=== PATIENT | male | born 1955 | race Caucasian/White ===

== ENCOUNTER 2023-05-08 09:32 | Inpatient (IN) | payer OTHER, SELFPAY ==
[2023-05-08] VITALS (33 sets, daily range): BP systolic 76–154; BP diastolic 44–99; PULSE 65–72; BMI 27.8; BMI 27.0
[2023-05-08 05:41] LABS: % Basophils 0.4 % (0-2); % Eosinophils 1.6 % (0-6); % Immature Granulocytes 0.4 % (0-0.5); % Lymphocytes 23.8 % (20.5-51.1); % Monocytes 9.9 % (1.7-9.3); % Neutrophils 63.9 % (42.2-75.2); Absolute Eosinophils 0.2 10^3/uL (0-0.7); Absolute Lymphocytes 2.5 10^3/uL (1.2-3.4); Absolute Monocytes 1.1 10^3/uL (0.1-0.6); Absolute Neutrophils 6.8 10^3/uL (1.4-6.5); Hematocrit 45.2 % (39.0-52.0); Hemoglobin 15.6 g/dL (13.0-18.0); Mean Corp Hgb Conc. 34.5 g/dL (33.0-37.0); Mean Corpuscular Hgb 30.8 pg (27.0-31.0); Mean Corpuscular Volume 89.3 fL (80.0-94.0); Mean Platelet Volume 9.5 fL (7.4-10.4); Nucleated Red Blood Cells % 0 % (-); Platelet Count 268 10^3/uL (130-400); Red Blood Cell Count 5.06 10^6/uL (4.70-6.10); Red Cell Dist. Width 13.1 % (11.5-14.5); White Blood Cell Count 10.6 10^3/uL (4.8-10.8)
--- NOTE | 2023-05-08 05:46 | ED.GENMED ---
History of Present Illness
General
Chief Complaint: Heart Rate Problem
Source: patient
Exam Limitations: none
Time Seen by Provider: 05/08/23 05:39
Nursing documentation reviewed up to this point in time: agreed with
Travel History
Have you had any contact with someone who has COVID-19?: No
Do you have any symptoms of coronavirus? Fever > 100 degrees, chills, cough, shortness of breath, sore throat, loss of taste or smell, muscle aches, or headache?: No
History of Present Illness
History of Present Illness:
Patient status post recent pacemaker placement secondary to dizziness associated with bradycardia, presents to ED secondary to sudden onset of chest palpitations which woke the patient up from sleep this morning. Denies shortness of breath. Denies
chest pain. Denies diaphoresis. Denies nausea or vomiting. Patient is also complaining of dizziness, which unfortunately has been ongoing for some time. Denies recent change in diet. Denies recent illness. Denies recent travel. Patient does
not take any blood thinning medications. Patient presents with rapid atrial fibrillation, which patient has not had previously.
Past History
Past History
ED Past Medical History: HTN, Hypercholesterolemia and Other (BPH); Negative Arrthythmia, CAD, IDDM or NIDDM
ED Past Surgical History: Tonsilectomy and Other (Hernia repair)
Social History
Tobacco: Non-smoker
Alcohol: None
Drug: None
Personal:
Living: with family
Employment: Employed
Family History
Family History: Hypertension and Other (Two brothers with cardiac problems on with 2 SC's in 60's, other brother has pacemaker)
Review of Systems
Review of Systems
Allergies reviewed?: Yes
All Other Systems: ROS reviewed and negative except as documented in HPI and ROS
Constitutional: Reports no symptoms
EENT: Reports no symptoms
Respiratory: Reports no symptoms; Denies trouble breathing
Cardiac: Reports palpitations; Denies chest pain, diaphoresis or syncope
ABD/GI: Reports no symptoms; Denies nausea or vomiting
: Reports no symptoms
Musculoskeletal: Reports no symptoms
Skin: Reports no symptoms
Neurological: Reports no symptoms
Phy Exam
Physical Exam
Physical Exam:
Physical Exam
General: mild distress, not acutely ill. afebrile
Head: nc/at. eomi
Neck: supple. no meningeal signs.
Heart: irregularly irregular, tachycardic, no murmur. equal radial pulses.
Lungs: no acute respiratory distress. clear bilaterally
Abdomen: normal bowel sounds. not tender.
Neuro: alert and oriented. no focal neurological deficits
Skin: no rash
Psychiatric: well kept. interactive and cooperative
Extremities: no edema. no calf tenderness.
Scores
[id number] Score for Afib Stroke Risk
Age in Years (65=0, 65-74=1, >/=75=2): 65-74
Sex (Female=+1): Male
Congestive Heart Failure History (Yes=+1): No
Hypertension History (Yes=+1): Yes
Stroke/TIA/Thromboembolism History (Yes=+2): No
Vascular Disease History (Yes=+1): No
Diabetes Mellitus (Yes=+1): No
Score: 2
Anticoagulation Recommendations: Recommend anticoagulation (as validated in nonvalvular fib)
Course
Orders/Labs/Results
Orders:
Orders
05/08/23 05:32
Electrocardiogram (*1) Urgent
Reason for Study: Palpitations
Cardiac Monitoring- Treatment ONCE
05/08/23 05:33
EKG- Treatment ONCE
05/08/23 05:35
CMP [Comprehensive Metabolic Panel] Urgent
Complete Blood Count/With Diff Urgent
Magnesium Urgent
Comment: ADD ON
TSH Reflex To Free T4 Urgent
Comment: ADD ON
Troponin I Urgent
05/08/23 05:45
Add On- LAB Urgent
Tests Added?: magnesium, TSH to reflex free T4
05/08/23 05:47
Diltiazem 125 mg/125 ml Nss [Cardizem] 125 mg in 125 ml .ROUTE .STK-MED
Diltiazem HCl [Cardizem] 25 mg .ROUTE .STK-MED ONE
05/08/23 05:48
Diltiazem HCl [Cardizem] 20 mg IV NOW STA
05/08/23 Breakfast
Regular
At Your Request: Full Participation
Does patient need a safe tray?: No
Reason for opting out of Ssrs Report Developer order writing: Provider Decision
Diltiazem 125 mg/125 ml Nss [Cardizem] 125 mg in 125 ml IV PER PROTOCOL
Initial dose in mg/hr, then titrate:: 5
Titrate to keep:: Heart rate 80-100 bpm
Titrate by mg/hr:: 5 mg/hr
Frequency of titrations (minutes):: 15
Maximum dose in mg/hr:: 15
05/08/23 06:02
EKG [Electrocardiogram (*1)] Urgent
Reason for Study: Other
Other Reason for Exam: rhythm change
05/08/23 06:03
EKG- Treatment ONCE
05/08/23 06:39
0.9% Sodium Chloride 500 ml [Nss] 500 ml IV BOLUS
05/08/23 07:19
Diltiazem Extended Release [Cardizem Cd] 180 mg PO NOW STA
05/08/23 09:12
EKG [Electrocardiogram (*1)] Urgent
Reason for Study: Palpitations
CT Head W/o Iv Contrast Urgent
Comment:
Reason For Exam: dizziness, afib
05/08/23 09:13
Admit/Transfer Patient As Directed
Co-Sign Provider:
Level of Care: Inpatient admission
Assign to:: Telemetry
Physician / Group: hospitalist
Diagnosis: afib
Reason for Telemetry: Arrhythmia
Date to Stop Telemetry: 05/11/23
Time to Stop Telemetry: 11:00
Reason for Hospitalization: new afib
Expected length of stay greater than two midnights?: No
ELOS- Estimated Length of Stay in days: 1
I certify the patient meets the requirements for IP care: Yes
05/08/23 09:14
Code Status As Directed
Resuscitation Status: Full Code
05/08/23 11:26
CARDIOLOGY CONSULT Routine
Consulting Provider: Agustín Mora
Was physician already notified: Yes
Reason for consult: afib
Activity As Directed
Activity Level: Ambulate
Orthostatic Vital Signs As Directed
Orthostatic VS Frequency: BID
Vital Signs As Directed
Frequency: Per unit guidelines
DX Deep Vein Thrombosis Video Routine
05/08/23 18:00
Enoxaparin Sodium [Lovenox] 40 mg SC QPM
Tamsulosin [Flomax] 0.4 mg PO QPM
05/09/23 06:00
Basic Metabolic Panel IN AM
Complete Blood Count/No Diff IN AM
Magnesium IN AM
05/09/23 08:00
Ascorbic Acid [Vitamin C] 500 mg PO DAILY
Cholecalciferol (Vitamin D3) [VITAMIN D3 (cholecalciferol)] 50 mcg PO DAILY
Cyanocobalamin [Vitamin B-12] 1,000 mcg PO DAILY
Ezetimibe [Zetia] 5 mg PO DAILY
Magnesium Oxide 500 mg PO DAILY
05/11/23 11:00
DC Protocol for Telemetry ONCE
Abnormal Lab Results
05/08/23
05:35
Absolute Neuts (auto) 6.8 H 10^3/uL
(1.4-6.5)
Absolute Monos (auto) 1.1 H 10^3/uL
(0.1-0.6)
Monocytes % 9.9 H %
(1.7-9.3)
BUN 23 H mg/dl
(9-20)
Glucose 110 H mg/dl
(70-99)
05/08/23 05:35
05/08/23 05:35
Vital Signs
Initial and Last Documented VS:
Initial Vital Signs
BP
154/99
05/08/23 05:35
Last Documented Vital Signs
Temp Pulse Resp BP Pulse Ox
98 F 79 13 104/72 98
05/08/23 15:00 05/08/23 15:45 05/08/23 15:45 05/08/23 15:30 05/08/23 15:30
MDM/Problems Addressed
MDM/Problems Addressed:
History and exam concerning for new onset atrial fibrillation. As patient's heart rate remains elevated despite Cardizem infusion, patient will be admitted for further evaluation and treatment. Will defer anticoagulation to admitting team.
Discussed with (cardiology). Will see patient as consult.
*EKG
Interpreted by ED Provider?: Yes
EKG Intrepretation Date: 05/08/23
Heart Rate: 145
Rate: tachycardiac
Rhythm: a-fib
[place]: normal axis
Interval: normal interval
*Critical Care Note
Total Time (30-74mins, 75-104mins- exclusive of procedures): 30 min
ED Attending Note
-
Portions of this chart may have been created with voice recognition software.� Occasional wrong word or��sound alike� substitutions may have occurred due to the inherent limitations of voice recognition software.
Discharge Plan
Departure
Patient Disposition: Admit
Date of Disposition: 05/08/23
Time of Disposition: 07:49
Admit to: Telemetry
Presentation/result/management discussed w/ accepting MD/DO: Hospitalist
Discharge Problem:
Atrial fibrillation, rapid
Interventions
Interventions:
*Risk Screen - Suicide Last Done: 05/08/23 05:36
*General Assessment Last Done: 05/08/23 05:36
*Neglect/Abuse Screening Last Done: 05/08/23 05:36
ED- Fall Risk Assessment Last Done: 05/08/23 06:58
*ED COVID-19 Vaccine History Last Done: 05/08/23 14:59
*Nursing Disposition Last Done: 05/08/23 14:59
ED- Cardiac Assessment Last Done: 05/08/23 06:58
ED- Pulmonary Assessment Last Done: 05/08/23 06:58
Discharge Date and Time
Discharge Date/Time: 05/08/23 15:49
[2023-05-08] MEDS: CARDIZEM 20 MG IV (05:52)
[2023-05-08] MEDS: CARDIZEM 125 IV (05:53)
[2023-05-08 05:59] LABS: ALT (SGPT) 24 U/L (0-50); AST (SGOT) 22 U/L (17-59); Albumin 4.2 g/dl (3.5-5.0); Alkaline Phosphatase 59 U/L (38-126); Blood Urea Nitrogen 23 mg/dl (9-20); Calcium 9.9 mg/dl (8.4-10.2); Carbon Dioxide 26 mmol/L (22-30); Chloride 102 mmol/L (98-107); Estimated Creatinine Clearance 82 ml/min; Glucose 110 mg/dl (70-99); Magnesium 2.1 mg/dl (1.6-2.3); Potassium 3.7 mmol/L (3.5-5.1); Sodium 139 mmol/L (135-145); Total Bilirubin 1.2 mg/dl (0.2-1.3); Total Protein 6.8 g/dl (6.3-8.2); eGFR > 60.00
[2023-05-08 06:10] LABS: Troponin I < 0.012 ng/ml
[2023-05-08 06:30] LABS: TSH Reflex To Free T4 2.57 uIU/ml (0.47-4.68)
[2023-05-08] MEDS: NSS 500 IV (06:44)
--- NOTE | 2023-05-08 07:43 | EDRN ---
the pt was received from previous car shifter RN, the pt is resting in stretcher in the lowest position, side rails up x2, call pereyra within reach, HOB elevated, VS WNL, the pt is in Afib in the 90-110's, Cardizem gtt is running at 10mg/hour, last BP
129/77 (90), no c/o CP, no c/o SOB, RA Sp02 96%, Dr. Gee at the pts bedside speaking with the pt, will continue to monitor the pt closely
--- NOTE | 2023-05-08 08:40 | HPS.HSE ---
Family Physician
-
Family Physician: Ruthann Naik
Chief Complaint
-
Palpitations
History of Present Illness
68-year-old male presents to the ER with sudden onset of palpitations which woke him up from sleep this morning. He had a pacemaker placement secondary to bradycardia on March 20. This was preceded by a syncopal event in January 2023. Patient
had a C5 chip fracture and had a cervical collar placed. Was transferred from our ER to [facility] at that time. Once the collar came off he had pacemaker placement for bradycardia. Patient was also placed on metoprolol at that time . Patient
states that since the pacemaker he has felt dizziness almost all the time. He checks his pulse rate mostly 70s to 80s and his blood pressure is 120 over below range. 2 weeks ago he had a sensation where he felt palpitations while taking flight of
stairs while he was at school. His heart rate was 1 19-1 20 at that time which went away on its own. Today we he woke up around 4 AM with palpitations and his heart rate was in 160s. Patient states that whenever he feels dizzy he checks his heart
rate and is never in A-fib or tachycardic at that time. After the dizziness started he called sketcher who asked him to come off of metoprolol and went up on the dose of lisinopril from 5 mg to 10 mg. He has no change in dizziness since he was
taken off of the metoprolol.He saw ENT again and has an MRI of the brain scheduled for June [facility].
Medical History
Past Medical History
Past Medical History: Reports Other
Additional Past Medical History:
Hypertension, hyperlipidemia, prostate disease, chronic dizziness, numbness and tingling of the arm and toes
Past Surgical History: Reports Tonsilectomy and Other
Additional Past Surgical History:
Hernia repair, sinus surgery 2020
Social History
Tobacco: Non-smoker
Alcohol: None
Drug: None
Employment: Employed (teacher )
Family History
Family History: CAD (Brother had CABG in his 50s) and Other (1 brother had ICD placement, next brother has CHF)
Allergies / Home Medications
Allergies reflects when Allergies were last updated in [facility].
Home Medications with original date entered in [facility]
Allergy/Medication List:
Allergies
Allergy/AdvReac Type Severity Reaction Status Date / Time
Sulfa (Sulfonamide Allergy Intermediate Rash Verified 05/08/23 05:41
Antibiotics)
levofloxacin Allergy Rash Verified 05/08/23 05:41
Penicillins Allergy Rash Verified 05/08/23 05:41
sulfamethoxazole Allergy Rash Verified 05/08/23 05:41
[From Bactrim]
trimethoprim [From Bactrim] Allergy Rash Verified 05/08/23 05:41
Home Medications
alfuzosin 10 mg tablet,extended release 24 hr 10 mg PO QPM Urinary issue 06/23/20
ascorbic acid (vitamin C) 500 mg tablet (Vitamin C) 500 mg PO DAILY Supplement 03/20/23
cholecalciferol (vitamin D3) 50 mcg (2,000 unit) tablet 2,000 units PO DAILY Supplement 03/20/23
cyanocobalamin (vitamin B-12) 1,000 mcg tablet 1,000 mcg PO DAILY Supplement 03/20/23
ezetimibe 10 mg tablet (Zetia) 5 mg PO DAILY CHOL 03/20/23
lisinopril 5 mg tablet 10 mg PO HS BLOODS P 03/20/23
magnesium 250 mg tablet 250 mg PO DAILY Supplement 03/20/23
Review of Systems
-
A 12 point ROS was completed and negative except as noted: Yes
Respiratory: Denies Trouble Breathing
Cardiac: Reports Palpitations; Denies Chest Pain
: Reports Frequency (from non bacterial Prostatitis)
Physical Exam
Vital Signs
Vital Signs
Temp Pulse Resp BP Pulse Ox
98.1 F 94 11 115/77 96
05/08/23 07:37 05/08/23 08:30 05/08/23 08:30 05/08/23 08:30 05/08/23 08:15
Physical Exam
General: No Apparent Distress and Conversant
Respiratory: Clear
Cardiac: S1/S2 and Regular Rhythm
GI: Soft, Non Tender and Normal Bowel Sounds
Neuro: Nonfocal/grossly intact
Psych: Intact Judgment/Insight
Laboratory Results
-
05/08/23 05:35
05/08/23 05:35
Laboratory Results
Total Bilirubin 1.2 mg/dl (0.2-1.3) 05/08/23 05:35
AST 22 U/L (17-59) 05/08/23 05:35
ALT 24 U/L (0-50) 05/08/23 05:35
Alkaline Phosphatase 59 U/L (38-126) 05/08/23 05:35
Troponin I < 0.012 ng/ml 05/08/23 05:35
Data Reviewed
-
Medical Tests (Nuc Med, Echo, EKG etc): Image Personally Visualized and interpreted (EKG reviewed by me-atrial fibrillation with a rate of 100)
Impression/Plan
-
IMPRESSION/PLAN:
Echo 03/30/2021-EF 60 to 65%. No regional wall motion abnormalities. Normal diastolic function. Normal RV size and function. Mitral valve opens normally. Mild MR, trace TR, pulmonary pressure 20 to 25 mmHg.
# New onset atrial fibrillation
Admit
On Cardizem drip
He did not do well with metoprolol however I am not sure if his symptoms are secondary to metoprolol as he did not get better even after coming off of metoprolol.
Can consider calcium channel blockers
Patient looks like he converted to regular rhythm
Anticoagulation briefly discussed with the patient
He has concerns with his dizziness and also with his brother dying from a brain bleed
Discussed about risks of stroke
ChadsVasc Score 2 - Gender and HTN
# Hypertension-hold lisinopril as he may need rate controlling agents
# Dizziness since pacemaker placement
Patient states that when he feels dizzy he is not tachycardic he checks his pulse
Check CT scan of the brain
MRI of the brain if possible with recent pacemaker placement-defer to cardiology
Check orthostatic vital signs
? From concussion
# Enlarged prostate-continue alfuzosin
Patient follows up with Dr. Yoon at [facility]
States that he is running a course of nonbacterial prostatitis at present
# Hyperlipidemia-on Zetia
# Syncopal event with C5 chip fracture seen at [facility] in January
Had a collar/brace placed and removed since then.
# DVT [id number] be changed to NOACs if being started
# Full code
--- NOTE | 2023-05-08 08:45 | EDRN ---
the pt pressed the call pereyra and this RN entered the pts room, the pt stated that he needed to urinate, this RN assisted the pt with standing at the bedside and urinating into the urinal, the pt had no c/o chest pain, no c/o SOB, no c/o dizziness,
the pt was assisted back into the stretcher, VS WNL, the pt is currently still in Afib in the 70's, last BP 115/77 (88), Cardizem gtt currently still running at 10mg/hour, RA Sp02 96%, the pt is resting in stretcher in the lowest position, side
rails up x2, call pereyra within reach, HOB elevated, will continue to monitor the pt closely
--- NOTE | 2023-05-08 10:00 | EDRN ---
the pt converted to NSR in the 's, provider Hilda Ham GREENSKEEPER SUPERVISOR notified by this RN
--- NOTE | 2023-05-08 10:07 | CON.CAR ---
Addendum entered and electronically signed by PATEL Winkler 05/08/23 12:36:
Date/Time Consultation Requested: 05/08/23 10:00
Date/Time Consultation Performed: 05/08/23 10:10
Requesting Provider: Dr. Jay
Performing Provider: PATEL Harris for Dr. Mora
Reason for Consultation: New onset atrial fibrillation
Addendum entered and electronically signed by Agustín Mora MD 05/08/23 12:10:
I saw and examined the patient.
The STOCK RECEIVER's note was reviewed and I agree with the note.
Comment: 68 year old ,juan r (known to Dr. Serra, his primary operations trainer) with HTN, HLD, BPH and bradycardia with syncope presented to the ER with sudden onset of palpitations which woke him from sleep. He was found to be in AF RVR and now back
in sinus rhythm.
- dilt 180 mg daily
- agreeable to Eliquis 5 mg bid
- TTE pending
Original Note:
Medical History
-
Chief Complaint: Palpitations
History of Present Illness:
Dave Montilla is a 68 year old ,juan r (known to Dr. Serra, his primary operations trainer) with HTN, HLD, BPH and bradycardia with syncope presented to the ER with sudden onset of palpitations which woke him from sleep. He had a pacemaker placed
secondary to bradycardia in February. This was preceded by a syncopal event in January in which the patient had a C5 fracture and had a cervical collar placed. He was transferred from this facility to [facility]. After he recovered and had removal
of his cervical collar he had a pacemaker placed. He was also started on metoprolol at that time. He endorsed dizziness. His metoprolol was discontinued. The dizziness persisted and his lisinopril was decreased from 10 mg to 5 mg. He is still
having dizziness. He describes it as a heaviness in his head. He does not have any sensation of being off balance or the room spinning. Nothing makes it worse but laying down makes it better. He has seen ENT in the outpatient setting. He has an
MRI scheduled for next month. Regarding his sudden onset of palpitations this morning, he presented to the emergency department in atrial fibrillation with rapid ventricular response. He was given an intravenous bolus of diltiazem and started on a
diltiazem drip. He converted to sinus rhythm at approximately 9 AM.
Past Medical History
Past Medical History: Arrhythmias (bradycardia S/P PPM), HTN and Hypercholesterolemia
Past Surgical History: Orthopedic and Tonsilectomy
Social History
Tobacco: Non-Smoker
Alcohol: None
Drug: None
Employment: Employed (Teacher)
Family History
Family History: CAD (Brother)
Allergies / Home Medications
Allergy/AdvReac Type Severity Reaction Status Date / Time
Sulfa (Sulfonamide Allergy Intermediate Rash Verified 05/08/23 05:41
Antibiotics)
levofloxacin Allergy Rash Verified 05/08/23 05:41
Penicillins Allergy Rash Verified 05/08/23 05:41
sulfamethoxazole Allergy Rash Verified 05/08/23 05:41
[From Bactrim]
trimethoprim [From Bactrim] Allergy Rash Verified 05/08/23 05:41
Medication Instructions Recorded Confirmed Type
alfuzosin 10 mg tablet,extended 10 mg PO QPM Urinary issue 06/23/20 05/08/23 History
release 24 hr
ascorbic acid (vitamin C) 500 mg 500 mg PO DAILY Supplement 03/20/23 05/08/23 History
tablet (Vitamin C)
cyanocobalamin (vitamin B-12) 1,000 mcg PO DAILY Supplement 03/20/23 05/08/23 History
1,000 mcg tablet
ezetimibe 10 mg tablet (Zetia) 10 mg PO HS CHOL 03/20/23 05/08/23 History
lisinopril 5 mg tablet 5 mg PO HS BLOODS P 03/20/23 05/08/23 History
magnesium 250 mg tablet 250 mg PO DAILY Supplement 03/20/23 05/08/23 History
aspirin 325 mg tablet 325 mg PO ONCE 05/08/23 05/08/23 History
cholecalciferol (vitamin D3) 50 50 mcg PO DAILY 05/08/23 05/08/23 History
mcg (2,000 unit) tablet
Review of Systems
-
History Source: Patient
All other systems: Negative unless noted
Cardiac: No Symptoms
Abdomen/GI: No Symptoms
Neurological: Dizzy
Physical Exam
Vital Signs
Temp Pulse Resp BP Pulse Ox
98.1 F 88 11 115/77 95
05/08/23 07:37 05/08/23 08:45 05/08/23 08:45 05/08/23 08:30 05/08/23 08:45
Lab Results
05/08/23 05:35
05/08/23 05:35
Troponin I < 0.012 ng/ml 05/08/23 05:35
Physical Exam
General: Well Developed, Well Nourished, No Apparent Distress and Comfortable
HEENT: Normocephalic, Anicteric and Moist Mucous Membranes
Respiratory: Clear and Non Labored Respirations
Cardiac: S1/S2 and Regular Rhythm; Negative Peripheral Edema
Breast: Deferred by me
GI: Soft, Non Tender, Non Distended and Normal Bowel Sounds
Rectal: Deferred by Provider
Genito-urinary: No Costovertebral Tender
Musculoskeletal: No Clubbing, No Cyanosis and No Edema
Skin: Warm and Dry
Neuro: AO x 3
Hematologic/Lymphatic: No Lymphadenopathy
Psych: Calm
Impression / Plan
-
Paroxysmal atrial fibrillation, new
-Back in sinus rhythm on diltiazem at 10mg/hour, transition to PO, diltiazem CD 180mg
-Oral Anticoagulation: None, start Apixaban 5mg BID
-[id number]: score at least 2 (HTN, age 65-74)
Dizziness
-Orthostatic VS
-Check echo, unremarkable in Mar [address]
-Head CT stable
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
-Interrogate
HTN
-Hold Lisinopril with dizziness
Syncope with C5 fracture prior to PPM
Pre-diabetes, Hgba1c 5.8%
HLD, on Zetia
Data Reviewed
-
EKG: Report Reviewed by me (Atrial fibrillation, rate 145; Atrial fibrillation, rate 100; Atrial paced rhythm, rate 78)
Medical Tests (Nuc Med, Echo etc): Report Reviewed by me (Echo as above)
Labs: Labs Reviewed by me
Old Records: Reviewed
[2023-05-08] MEDS: CARDIZEM CD 180 MG PO (11:56)
[2023-05-08] MEDS: ELIQUIS 5 MG PO ×2 (11:56→19:33)
--- NOTE | 2023-05-08 11:56 | EDRN ---
Cardizem gtt was turned off per provider Hilda Ham SIZING END BANDER, the pt is currently still in NSR in the 70-80's, Cardizem 180 PO and Eliquis 5mg PO administered per provider, Echo currently at the pts bedside, will continue to monitor the pt closely
--- NOTE | 2023-05-08 13:00 | EDRN ---
the pt remains in NSR in the 70's, VS WNL, no c/o chest pain, no c/o SOB, the pt is asking when he is going home, the pt stated, 'When am i getting out of here, from what i understood if i stayed in NSR off of the IV i could go home', this RN will
contact hospitalist and cardiology to speak with them about this matter
--- NOTE | 2023-05-08 13:30 | EDRN ---
the pt is currently on the phone with Dr. Jay speaking about discharge versus admission
--- NOTE | 2023-05-08 14:07 | W.PN.UPDATE ---
Addendum entered and electronically signed by Gina Jay MD 05/08/23 22:49:
patient stayed as orthostatic vitals were abnormal.
Original Note:
Update Note
Progress Note Update
Patient converted to sinus rhythm cardiology evaluated and discussed that patient may be able to go home. I discussed with the patient whether he wants to stay on the new medicine such as Cardizem, Eliquis or he wants to go home. Patient wants to
go home. Reviewed results of TSH and head CT with the patient.
He is aware that there is no guarantee that his dizziness will not come back.
Will check orthostatic vital sign
Discussed with RN
--- NOTE | 2023-05-08 14:44 | EDRN ---
this RN called receiving unit and notified them that paper report was going to be tubed up
--- NOTE | 2023-05-08 14:58 | EDRN ---
orthostatic vital signs obtained and documented
--- NOTE | 2023-05-08 15:07 | EDRN ---
this RN notified Dr. Jay of the pts low blood pressures
[2023-05-08 19:04] LABS: Hepatitis C Antibody Negative (Negative)
--- NOTE | 2023-05-08 22:47 | W.PN.UPDATE ---
Update Note
Progress Note Update
updated ortho signs from around 6 pm noted.
No IVF for now.
[2023-05-09 03:29] VITALS: BP 117/64
[2023-05-09 07:25] VITALS: BP 116/58
[2023-05-09 07:35] LABS: Hematocrit 45.3 % (39.0-52.0); Hemoglobin 15.6 g/dL (13.0-18.0); Mean Corp Hgb Conc. 34.4 g/dL (33.0-37.0); Mean Corpuscular Hgb 31.2 pg (27.0-31.0); Mean Corpuscular Volume 90.6 fL (80.0-94.0); Mean Platelet Volume 9.6 fL (7.4-10.4); Platelet Count 270 10^3/uL (130-400); White Blood Cell Count 8.5 10^3/uL (4.8-10.8)
[2023-05-09 07:44] LABS: Blood Urea Nitrogen 14 mg/dl (9-20); Calcium 9.3 mg/dl (8.4-10.2); Carbon Dioxide 24 mmol/L (22-30); Chloride 108 mmol/L (98-107); Estimated Creatinine Clearance 93 ml/min; Glucose 86 mg/dl (70-99); Potassium 4.1 mmol/L (3.5-5.1); Sodium 136 mmol/L (135-145); eGFR > 60.00
[2023-05-09] MEDS: VITAMIN C 500 MG PO (08:03)
[2023-05-09] MEDS: CARDIZEM CD 180 MG PO (08:03)
[2023-05-09] MEDS: VITAMIN D3 (cholecalciferol) 50 MCG PO (08:03)
[2023-05-09] MEDS: VITAMIN B-12 1000 MCG PO (08:03)
[2023-05-09] MEDS: MAGNESIUM OXIDE 500 MG PO (08:03)
[2023-05-09] MEDS: ELIQUIS 5 MG PO (08:03)
[2023-05-09 08:50] VITALS: BP 133/74; BP 135/73; BP 140/75; PULSE 64; PULSE 68; PULSE 70
--- NOTE | 2023-05-09 10:14 | W.PN.CD ---
Today's Communication / Plan
-
-Patient remains in sinus rhythm.
-Echocardiogram yesterday was unremarkable; will need stress test as outpatient.
-Stable to discharge to home today on Eliquis 5 mg twice daily and Cardizem CD 180 mg daily.
-Would not resume Lisinopril at this time secondary to dizziness; Cardiology can reevaluate as outpatient.
Impression / Plan
-
Paroxysmal atrial fibrillation, new
-Patient remains in sinus rhythm.
-Echocardiogram yesterday was unremarkable; will need stress test as outpatient.
-Stable to discharge to home today on Eliquis 5 mg twice daily and Cardizem CD 180 mg daily.
-[id number]: score at least 2 (HTN, age 65-74).
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
-Stable.
HTN
-Would not resume Lisinopril at this time secondary to dizziness; Cardiology can reevaluate as outpatient.
Syncope with C5 fracture prior to PPM
Pre-diabetes, Hgba1c 5.8%
HLD, on Zetia
Physical Exam
Vital Signs/Labs
Vital Signs
Temp Pulse Resp BP Pulse Ox
97.7 F 63 16 116/58 96
05/09/23 07:25 05/09/23 08:03 05/09/23 07:25 05/09/23 08:03 05/09/23 10:12
05/08/23 05/09/23 05/10/23
06:59 06:59 06:59
Actual Weight 88 kg 85.389 kg
05/09/23 06:45
05/09/23 06:45
Magnesium 2.0 mg/dl (1.6-2.3) 05/09/23 06:45
LAB Results
05/08/23
05:35
Troponin I < 0.012
Physical Exam
Constitutional: No acute distress and Comfortable
EENT: Anicteric
Cardiovascular: Rhythm & rate is regular, Pedal edema is absent, Systolic murmur absent and S1S2 is normal
Respiratory: Respiratory effort normal and Lungs clear to auscul.
GI: Soft
Neuro/Psych: AO x 3
Other: Skin (warm, dry, intact)
Data Reviewed
-
Date of Service: May 09, 2023
EKG: Tracing Personally Visualized and interpreted (Telemetry: Sinus rhythm)
Echo: Tracing Personally Visualized and interpreted (Normal LVEF; no significant valvular disease.)
Labs: Labs Reviewed by me
--- NOTE | 2023-05-09 11:33 | W.PN.HOSP.TC ---
Today's Communication/Plan
-
Discharge
Assessment / Plan
Assessment / Plan
CVS: S1-S2 normal
Chest: CTA B/L
Abdomen: Soft, NT / Bowel sounds present
Extremities: No edema, normal pulses
ASBESTOS SHINGLE INSPECTOR: Non focal exam
# New onset atrial fibrillation
Converted to sinus rhythm
Tolerating Cardizem
ChadsVasc Score 2 - Gender and HTN
Eliquis started-tolerating
Prescription given. Patient also has samples and co-pay cards.
He is aware that he needs to refill her prescription once runs out
# Hypertension-dyspnea.
Continue Cardizem
# Dizziness since pacemaker placement
CT unremarkable
MRI of the brain as outpatient-scheduled for June 14
Had mild orthostatic symptoms yesterday
None today. No dizziness reported
# Enlarged prostate-continue alfuzosin
Patient follows up with Dr. Yoon at [facility]
States that he is running a course of nonbacterial prostatitis at present
# Hyperlipidemia-on Zetia
# Syncopal event with C5 chip fracture seen at [facility] in January
Had a collar/brace placed and removed since then.
# DVT prophylaxis-Eliquis
# Full code
Discussed with case management
Discussed with nursing
Discussed with cardiology
Anticipated Discharge: Today
Subjective/Interval History
-
Date of Service: May 09, 2023
Objective Data
-
Labs:
Laboratory Results
05/09/23
06:45
WBC 8.5
Hgb 15.6
Hct 45.3
Plt Count 270
Sodium 136
Potassium 4.1
Chloride 108 H
Carbon Dioxide 24
BUN 14
Creatinine 0.8
Glucose 86
Calcium 9.3
Vital Signs:
Vital Signs
Temp Pulse Resp BP Pulse Ox
97.7 F 63 16 116/58 96
05/09/23 07:25 05/09/23 08:03 05/09/23 07:25 05/09/23 08:03 05/09/23 10:12
I&O
05/08/23 05/09/23 05/10/23
06:59 06:59 06:59
Intake Total 480 / 480
Output Total 420 / 420
Balance 60 / 60
--- NOTE | 2023-05-09 11:41 | W.DS.TRANS ---
Addendum entered and electronically signed by Gina Jay MD 05/09/23 17:32:
Dictation- [id number]
Original Note:
DC Summary - Precast Worker
-
Discharge Instructions:
Discharge Diagnosis/Procedures Paroxysmal atrial fibrillation, bradycardia with
history of pacemaker placement, hypertension,
syncope, history of C5 chip fracture,
hyperlipidemia
Diet 2 Gram Sodium
Activity As tolerated
Driving Restrictions As prior to admission
Instructions:
Stand-Alone Forms:
Changes to Home Medications: Yes
Discharge Medications:
DC Medications w/original date entered in [facility]
alfuzosin 10 mg tablet,extended release 24 hr 10 mg PO QPM Urinary issue 06/23/20
ascorbic acid (vitamin C) 500 mg tablet (Vitamin C) 500 mg PO DAILY Supplement 03/20/23
cyanocobalamin (vitamin B-12) 1,000 mcg tablet 1,000 mcg PO DAILY Supplement 03/20/23
ezetimibe 10 mg tablet (Zetia) 10 mg PO HS High Cholesterol 03/20/23
magnesium 250 mg tablet 250 mg PO DAILY Supplement 03/20/23
cholecalciferol (vitamin D3) 50 mcg (2,000 unit) tablet 50 mcg PO DAILY Supplement 05/08/23
apixaban 5 mg tablet (Eliquis) 5 mg PO BID Blood clot prevention/tx #60 tabs 05/09/23
diltiazem HCl 180 mg capsule,extended release 24 hr 180 mg PO DAILY Arrhythmia #30 caps 05/09/23
Home Medication Changes
Cardizem and Eliquis
Lisinopril and aspirin stopped
Pending Results: No
[2023-05-09 11:45] VITALS: BP 127/78
--- NOTE | 2023-05-09 11:53 | CM ---
Alert awake oriented patient who lives alone in a 2 story home with 12 step to enter and 5 steps to bed and bathroom He is independent in driving and in all activities of daily living.He was offered VN he declined need.No adaptive devices.Eliquis 5
mg bid sent to [facility] by MD DOCKERY called [facility] cost is $21.00 for month . Pt aware and agrees to pay for Eliquis.Pt arranged his own ride home. No further needs identified.
No VN/SNF history
Pharmacy [facility]
PCP DR Naik
PLAN Home Declined VN
== END 2023-05-09 12:45 | disposition home or self-care (01) | DRG 310 ==
LOC: 4 EAST ACU 09:32
PROVIDERS: ADMITTING PHYSICIAN Hospitalist; CONSULT PHYSICIAN Internal Medicine Cardiovascular Disease; EMERGENCY PHYSICIAN Emergency Medicine; FAMILY PHYSICIAN Family Medicine
DX: I48.0 Paroxysmal atrial fibrillation (principal); E11.9 Type 2 diabetes mellitus without complications; E78.00 Pure hypercholesterolemia, unspecified; I10 Essential (primary) hypertension; I25.10 Atherosclerotic heart disease of native coronary artery without angina pectoris; R00.1 Bradycardia, unspecified; R42 Dizziness and giddiness; N40.0 Benign prostatic hyperplasia without lower urinary tract symptoms; N41.9 Inflammatory disease of prostate, unspecified; Z95.0 Presence of cardiac pacemaker; Z82.49 Family history of ischemic heart disease and other diseases of the circulatory system; Z88.1 Allergy status to other antibiotic agents; Z88.0 Allergy status to penicillin; Z88.2 Allergy status to sulfonamides
CPT/HCPCS: 70450; 80048; 80053; 83735; 84443; 84484; 85025; 85027; 86803; 93005; 93306; 96361; 96374; 96376; 99291

== ENCOUNTER → 2023-07-13 11:03 | Outpatient (REF) | payer OTHER, SELFPAY | LOC: DHCBC/DCA 11:03 | PROVIDERS: ATTENDING PHYSICIAN Nurse Practitioner; FAMILY PHYSICIAN Family Medicine | DX: I48.0 Paroxysmal atrial fibrillation (principal); I49.5 Sick sinus syndrome; Z95.0 Presence of cardiac pacemaker; I10 Essential (primary) hypertension; R06.02 Shortness of breath | CPT/HCPCS: 78452; 93017; A9500; J2785 ==

== ENCOUNTER 2023-09-27 17:03 | Inpatient (IN) | payer OTHER, SELFPAY ==
[2023-09-27 15:04] VITALS: BP 172/89
[2023-09-27 15:21] LABS: % Basophils 0.2 % (0-2); % Eosinophils 0.4 % (0-6); % Immature Granulocytes 0.7 % (0-0.5); % Lymphocytes 8.7 % (20.5-51.1); Absolute Eosinophils 0.1 10^3/uL (0-0.7); Absolute Immature Granulocytes 0.1 10^3/uL (0-0.05); Absolute Lymphocytes 1.1 10^3/uL (1.2-3.4); Absolute Neutrophils 10.7 10^3/uL (1.4-6.5); Hematocrit 42.4 % (39.0-52.0); Hemoglobin 14.7 g/dL (13.0-18.0); Mean Corp Hgb Conc. 34.7 g/dL (33.0-37.0); Mean Corpuscular Hgb 31.5 pg (27.0-31.0); Mean Corpuscular Volume 90.8 fL (80.0-94.0); Mean Platelet Volume 9.4 fL (7.4-10.4); Nucleated Red Blood Cells % 0 % (-); Platelet Count 281 10^3/uL (130-400); Red Blood Cell Count 4.67 10^6/uL (4.70-6.10); Red Cell Dist. Width 13.3 % (11.5-14.5); White Blood Cell Count 13.1 10^3/uL (4.8-10.8)
[2023-09-27 15:41] LABS: ALT (SGPT) 29 U/L (0-50); AST (SGOT) 29 U/L (17-59); Albumin 4.4 g/dl (3.5-5.0); Alkaline Phosphatase 57 U/L (38-126); Blood Urea Nitrogen 13 mg/dl (9-20); Calcium 9.6 mg/dl (8.4-10.2); Chloride 104 mmol/L (98-107); Glucose 105 mg/dl (70-99); Potassium 4.5 mmol/L (3.5-5.1); Sodium 140 mmol/L (135-145); Total Bilirubin 1.3 mg/dl (0.2-1.3); Total Protein 7.1 g/dl (6.3-8.2); eGFR > 60.00
[2023-09-27 15:50] LABS: Carbon Dioxide 26 mmol/L (22-30)
--- NOTE | 2023-09-27 16:01 | ED.GENMED ---
History of Present Illness
General
Chief Complaint: Skin Problem
Source: patient
Time Seen by Provider: 09/27/23 15:30
History of Present Illness
History of Present Illness:
68-year-old male presenting to the emergency department for evaluation of right great toe infection at the request of his machine filler servicer. Patient is status post toenail removal done by his machine filler servicer this past , has been on erythromycin due to
antibiotic allergies since Sunday, noting no relief of the infection. Podiatry saw the patient again in follow-up today and recommended the patient come to the ER for IV antibiotics and admission to the hospital. Patient does admit to a fever with
Tmax of 100. He denies chills or rigors. He states that the toe itself is not significantly painful but does note occasional stinging sensation around the MTP and IP joint of the right great toe. No known history of diabetes. Denies any trauma
to the affected area. No other concerns presently.
Past History
Past History
ED Past Medical History: HTN, Hypercholesterolemia and Other (BPH); Negative Arrthythmia, CAD, IDDM or NIDDM
ED Past Surgical History: Tonsilectomy and Other (Hernia repair)
Social History
Tobacco: Non-smoker
Alcohol: None
Drug: None
Personal:
Living: with family
Employment: Employed
Family History
Family History: Hypertension and Other (Two brothers with cardiac problems on with 2 CO's in 60's, other brother has pacemaker)
Review of Systems
Review of Systems
All Other Systems: ROS reviewed and negative except as documented in HPI and ROS
Phy Exam
Physical Exam
Physical Exam:
GENERAL: Alert , in no apparent distress
EYE: conjunctiva clear
Head: Normocephalic atraumatic
NECK: Supple,
ENT: mmm.
LUNGS: no acute respiratory distress
NEUROLOGICAL: Alert and oriented
SKIN: Warm and dry, Right Great Toe: Toenail fully removed. Medication cream overlying nailbed. There is significant edema/erythema extending towards the distal 1st metatarsal. no purulence.
MUSCULOSKELETAL: well perfused. Easily palpable pedal and tibial pulses
PSYCH: Normal and appropriate interaction.
Scores
Heart Failure Risk
Heart Failure Risk Score: Not Applicable
Heart Score for Chest Pain Patients
STEMI patient?: Not applicable
Withdrawal Assessment of Alcohol
Withdrawal Assessment Completed?: Not applicable
Course
Orders/Labs/Results
Orders:
Orders
09/27/23 15:14
C-Reactive Protein Urgent
Comment: ESR & CRP ADDED ON BY FLOOR 3:50PM 09-27-23
CMP [Comprehensive Metabolic Panel] Urgent
Complete Blood Count/With Diff Urgent
Erythrocyte Sed Rate Urgent
09/27/23 15:51
Add On- LAB Urgent
Tests Added?: ESR/CRP
CR Foot - Right Min 3 Views Urgent
Comment:
Reason For Exam: great toe infection
09/27/23 16:29
Vancomycin [Vancocin] 2,000 mg 0.9% Sodium Chloride 500 ml [Nss] 500 ml IV NOW
09/27/23 16:55
Admit/Transfer Patient As Directed
Co-Sign Provider:
Level of Care: Inpatient admission
Assign to:: Medical/Surgical
Physician / Group: nic
Diagnosis: right big toe cellulitis
Reason for Hospitalization: right big toe cellulitis
Expected length of stay greater than two midnights?: Yes
ELOS- Estimated Length of Stay in days: 2
I certify the patient meets the requirements for IP care: Yes
09/27/23 16:56
Code Status As Directed
Resuscitation Status: Full Code
Abnormal Lab Results
09/27/23
15:14
WBC 13.1 H 10^3/uL
(4.8-10.8)
RBC 4.67 L 10^6/uL
(4.70-6.10)
MCH 31.5 H pg
(27.0-31.0)
Abs Immat Gran (auto) 0.1 H 10^3/uL
(0-0.05)
Absolute Neuts (auto) 10.7 H 10^3/uL
(1.4-6.5)
Absolute Lymphs (auto) 1.1 L 10^3/uL
(1.2-3.4)
Absolute Monos (auto) 1.0 H 10^3/uL
(0.1-0.6)
Immature Gran % 0.7 H %
(0-0.5)
Neutrophils % 82.0 H %
(42.2-75.2)
Lymphocytes % 8.7 L %
(20.5-51.1)
ESR 32 H mm/hour
(0-20)
Glucose 105 H mg/dl
(70-99)
C-Reactive Protein 86.20 H mg/L
(0.0-10.00)
09/27/23 15:14
09/27/23 15:14
Vital Signs
Initial and Last Documented VS:
Initial Vital Signs
Temp Pulse Resp BP Pulse Ox
99.3 F 79 16 172/89 98
09/27/23 15:09/27/23 15:04 09/27/23 15:04 09/27/23 15:04 09/27/23 15:04
Last Documented Vital Signs
Temp Pulse Resp BP Pulse Ox
99.3 F 79 16 172/89 98
09/27/23 15:09/27/23 15:09/27/23 15:04 09/27/23 15:04 09/27/23 15:04
MDM/Problems Addressed
Differential Diagnosis Includes:
cellulitis, gout, no abscess formation, no concern for necrotizing fasciitis
MDM/Problems Addressed:
68-year-old male presenting emergency department at request of his podiatry team to be admitted for IV antibiotics of right great toe infection status post toenail removal. Patient endorses a fever yesterday with Tmax of 100. Will obtain labs and
x-ray imaging to further assess. Plan to admit to hospitalist team for continued evaluation and treatment.
*Radiology
Radiology exam reviewed: preliminary read by ED provider (STS, no fx or sophia erosion)
*Pulse Oximetry
Patient hypoxic: no
*Critical Care Note
Total Time (30-74mins, 75-104mins- exclusive of procedures): Not Applicable
Data Reviewed
Review of Other/Old Records Reveals: Records
Source: patient and records
Patient Management
Discussion with other providers: Hospitalist
Escalation/DeEscalation of care consider admission/obs:
Hospitalist team is aware and accepts for continued evaluation and treatment
ED Attending Note
-
Portions of this chart may have been created with voice recognition software.� Occasional wrong word or��sound alike� substitutions may have occurred due to the inherent limitations of voice recognition software.
Discharge Plan
Departure
Patient Disposition: Admit
Date of Disposition: 09/27/23
Time of Disposition: 16:09
Presentation/result/management discussed w/ accepting MD/DO: Hospitalist
Discharge Problem:
Cellulitis of great toe, right
Interventions
Interventions:
*Risk Screen - Suicide Last Done: 09/27/23 15:04
*General Assessment Last Done: 09/27/23 15:04
*Neglect/Abuse Screening Last Done: 09/27/23 15:04
*ED COVID-19 Vaccine History Last Done: 09/27/23 15:04
ED-Skin Assessment Last Done: 09/27/23 15:45
[2023-09-27 16:18] VITALS: BMI 27.7
[2023-09-27 16:29] LABS: Erythrocyte Sed Rate 32 mm/hour (0-20)
[2023-09-27] MEDS: VANCOCIN 540 MG IV (16:48)
--- NOTE | 2023-09-27 17:00 | HPS.HSE ---
Family Physician
-
Family Physician: Ruthann Naik
Chief Complaint
-
right big toe infection
History of Present Illness
68-year-old male past medical history of paroxysmal atrial fibrillation on Eliquis, bradycardia with pacemaker, hypertension, syncopal episode with C5 chip fracture, hyperlipidemia, BPH presenting for evaluation of right great toe infection as
requested his patent prosecution attorney. Patient has a chronic displaced right big toe toenail that is displaced upwards due to an injury several years ago. On 1 week ago he underwent toenail removal by his patent prosecution attorney Dr. Figueroa Edgar at [facility].
After the surgery he put a Band-Aid on the area instead of applying gauze like he was supposed to. 3 days later the toenail and surrounding toe became red and painful. He had some low-grade fever under 100. Denies any chills. Denies any
discharge from the toe. He was started on erythromycin by his patent prosecution attorney but infection has not improved.
Medical History
Past Medical History
Past Medical History: Reports Other ( paroxysmal atrial fibrillation on Eliquis, bradycardia with pacemaker, hypertension, syncopal episode with C5 chip fracture, hyperlipidemia, BPH)
Past Surgical History: Reports Other (Tonsilectomy and Other (Hernia repair))
Social History
Tobacco: Non-smoker
Alcohol: None
Drug: None
Family History
Family History: Not pertinent
Allergies / Home Medications
Allergies reflects when Allergies were last updated in [facility].
Home Medications with original date entered in [facility]
Allergy/Medication List:
Allergies
Allergy/AdvReac Type Severity Reaction Status Date / Time
Sulfa (Sulfonamide Allergy Intermediate Rash Verified 05/08/23 05:41
Antibiotics)
levofloxacin Allergy Rash Verified 05/08/23 05:41
Penicillins Allergy Rash Verified 05/08/23 05:41
sulfamethoxazole Allergy Rash Verified 05/08/23 05:41
[From Bactrim]
trimethoprim [From Bactrim] Allergy Rash Verified 05/08/23 05:41
Home Medications
alfuzosin 10 mg tablet,extended release 24 hr 10 mg PO QPM Urinary issue 06/23/20
ezetimibe 10 mg tablet (Zetia) 10 mg PO HS High Cholesterol 03/20/23
magnesium 250 mg tablet 250 mg PO DAILY Supplement 03/20/23
apixaban 5 mg tablet (Eliquis) 5 mg PO BID Blood clot prevention/tx #60 tabs 05/09/23
diltiazem HCl 180 mg capsule,extended release 24 hr 180 mg PO DAILY Arrhythmia #30 caps 05/09/23
azithromycin 250 mg tablet 250 mg PO PER PKG DIR 09/27/23
Review of Systems
-
History Source: Patient
A 12 point ROS was completed and negative except as noted: Yes
Constitutional: Reports No Symptoms
EENT: Reports No Symptoms
Respiratory: Reports No Symptoms
Cardiac: Reports No Symptoms
Abdomen/GI: Reports No Symptoms
: Reports No Symptoms
Musculoskeletal: Reports No Symptoms
Skin: Reports See HPI
Neurological: Reports No Symptoms
Endocrine: Reports No Symptoms
Hematologic/Lymphatic: Reports No Symptoms
Psych: Reports No Symptoms
Physical Exam
Vital Signs
Vital Signs
Temp Pulse Resp BP Pulse Ox
99.3 F 79 16 172/89 98
09/27/23 15:04 09/27/23 15:04 09/27/23 15:04 09/27/23 15:04 09/27/23 15:04
Physical Exam
General: Well Developed, Well Nourished and No Apparent Distress
HEENT: NormoCephalic, Moist mucous membranes and Atraumatic
Respiratory: Clear
Cardiac: S1/S2 and Regular Rhythm; No Murmur or Rub
GI: Soft, Non Tender, Non Distended and Normal Bowel Sounds; No Organomegaly
Rectal: Deferred by Provider
Musculoskeletal: No Clubbing, No Cyanosis and No Edema
Skin: Other (right big toe erythema and tenderness and swelling ); No Rash
Neuro: Nonfocal/grossly intact
Laboratory Results
-
09/27/23 15:14
09/27/23 15:14
Laboratory Results
Total Bilirubin 1.3 mg/dl (0.2-1.3) 09/27/23 15:14
AST 29 U/L (17-59) 09/27/23 15:14
ALT 29 U/L (0-50) 09/27/23 15:14
Alkaline Phosphatase 57 U/L (38-126) 09/27/23 15:14
Data Reviewed
-
Lab Data: Labs Reviewed by me
Old Records: Reviewed
Impression/Plan
-
IMPRESSION:
PLAN:
# Right big toe infection likely cellulitis secondary to toenail resection
-Foot x-ray pending to evaluate for osteomyelitis
-Vancomycin
-Podiatry consulted
Paroxysmal atrial fibrillation
-Hold Eliquis in case interventions necessary
-Continue diltiazem
Bradycardia status post pacemaker
Essential hypertension
History of syncope
History of C5 chip fracture
Hyperlipidemia
-Continue Zetia
BPH
-Continue alfuzosin
Full code
DVT prophylaxis�SCDs
Regular diet
[2023-09-27 17:41] VITALS: BP 136/74
[2023-09-27 20:51] VITALS: BP 149/79; BMI 27.4
[2023-09-27 21:01] VITALS: BMI 27.4
--- NOTE | 2023-09-27 21:06 | PHA.VAN.IN ---
Assessment
- Assessment
Renal Function: Appears similar to baseline
Concomitant Antimicrobials: NONE
- Previous Dosing Experience
Previous Regimen: SINGLE DOSE ONLY
Date of Regimen: 03/20/23
Provided Trough of: UNKNOWN
Provided AUC of: UNKNOWN
Patient's SCR is: Similar to previous dosing experience (03/12/23 SCR = 0.9)
Patient's weight is: Decreased compared to previous dosing experience (03/12/23 WT = 89.7KG)
AUC Dosing Plan
- Dosing Variables
Dosing Weight (kg): 87.6
Dosing CrCl (ml/min): 93
Vd coefficient (L/kg): 0.7
- Empiric Dosing
Initial / Loading Dose: 2GM
Maintenance Regimen: 1250MG IV Q12H
Estimated AUC (mcg*h/mL): 530
Estimated Peak (mcg*h/mL): 32.7
Estimated Trough (mcg/ml): 13.9
Estimated Half Life (H): 8.5
Pharmacokinetics Vancomycin I
- -
Patient Age: 68
Patient Sex: Male
Vancomycin Day #: 1
Requesting Provider: SHAHRAM
Pertinent Antimicrobial Allergies:
Allergies
Penicillins Allergy (Verified 05/08/23 05:41)
Rash
Sulfa (Sulfonamide Antibiotics) Allergy (Intermediate, Verified 05/08/23 05:41)
Rash
levofloxacin Allergy (Verified 05/08/23 05:41)
Rash
sulfamethoxazole [From Bactrim] Allergy (Verified 05/08/23 05:41)
Rash
trimethoprim [From Bactrim] Allergy (Verified 05/08/23 05:41)
Rash
Height / Weight:
Height 5 ft 10 in
Actual Weight 86.682 kg
- Vital Signs / Lab Results
Temp Pulse Resp BP Pulse Ox
98.2 F 71 18 149/79 94
09/27/23 20:51 09/27/23 20:51 09/27/23 20:51 09/27/23 20:51 09/27/23 20:51
Lab Results - Hematology
09/27/23
15:14
WBC 13.1 H
Lab Results - Chemistry
09/27/23
15:14
BUN 13
Creatinine 0.8
Albumin 4.4
[2023-09-27] MEDS: ZETIA 10 MG PO (22:16)
[2023-09-27] MEDS: NON-FORMULARY ITEM 10 MG PO (22:17)
[2023-09-27 23:31] VITALS: BP 131/69
[2023-09-28] MEDS: VANCOCIN 275 MG IV ×2 (05:30→17:13)
[2023-09-28] MEDS: TYLENOL 650 MG PO (05:41)
--- NOTE | 2023-09-28 05:57 | PTCARENOTE ---
Pt received from ER [id number] able to make his needs known,pleasant & cooperative. Pt oriented to room & call pereyra in reach.Pt c/o 04/07 pain in right first toe denies need of pain meds. Pt oriented to room & call pereyra in reach.
[2023-09-28 07:00] VITALS: BP 119/78
[2023-09-28 07:06] LABS: % Basophils 0.3 % (0-2); % Eosinophils 1.6 % (0-6); % Immature Granulocytes 0.5 % (0-0.5); % Lymphocytes 15.3 % (20.5-51.1); % Monocytes 8.8 % (1.7-9.3); % Neutrophils 73.5 % (42.2-75.2); Absolute Eosinophils 0.2 10^3/uL (0-0.7); Absolute Immature Granulocytes 0.1 10^3/uL (0-0.05); Absolute Lymphocytes 1.5 10^3/uL (1.2-3.4); Absolute Monocytes 0.8 10^3/uL (0.1-0.6); Hematocrit 39.2 % (39.0-52.0); Hemoglobin 13.7 g/dL (13.0-18.0); Mean Corp Hgb Conc. 34.9 g/dL (33.0-37.0); Mean Corpuscular Hgb 31.5 pg (27.0-31.0); Mean Corpuscular Volume 90.1 fL (80.0-94.0); Nucleated Red Blood Cells % 0 % (-); Platelet Count 253 10^3/uL (130-400); Red Blood Cell Count 4.35 10^6/uL (4.70-6.10); Red Cell Dist. Width 13.2 % (11.5-14.5); White Blood Cell Count 9.6 10^3/uL (4.8-10.8)
[2023-09-28 07:35] LABS: Blood Urea Nitrogen 13 mg/dl (9-20); Calcium 9.2 mg/dl (8.4-10.2); Carbon Dioxide 28 mmol/L (22-30); Chloride 105 mmol/L (98-107); Estimated Creatinine Clearance 82 ml/min; Glucose 95 mg/dl (70-99); Sodium 138 mmol/L (135-145); eGFR > 60.00
--- NOTE | 2023-09-28 08:15 | PHA.VAN.FU ---
Vancomycin Assessment / Plan
- Assessment
Renal Function: Stable
WBC's are: Trending Down
In the past 24 hrs, patient has been: Afebrile
- Dosing Plan
Continue: Vanc 1250mg Q12H
- Monitoring Plan
No level(s) ordered at this time: consider levels in next few days
- Follow Up
Pharmacy will continue to follow.
Vancomycin Follow UP
- -
Patient Age: 68
Patient Sex: Male
Vancomycin Day #: 2
Indication: Skin And Soft Tissue
Requesting Provider: Dr. Boudreaux
Pertinent Antimicrobial Allergies:
Penicillins - Rash
Sulfa (Sulfonamide Antibiotics) - Rash
levofloxacin - Rash
Height / Weight:
Height 5 ft 10 in
Actual Weight 86.682 kg
- Vital Signs / Lab Results
Temp Pulse Resp BP Pulse Ox
98.2 F 71 18 119/78 96
09/28/23 07:00 09/28/23 07:00 09/28/23 07:00 09/28/23 07:00 09/28/23 07:00
Lab Results - Hematology
09/27/23 09/28/23
15:14 06:51
WBC 13.1 H 9.6
Lab Results - Chemistry
09/27/23 09/28/23
15:14 06:51
BUN 13 13
Creatinine 0.8 0.9
Estimated Creat Clear 82
Albumin 4.4
[2023-09-28 08:22] LABS: Hepatitis C Antibody Negative (Negative)
[2023-09-28] MEDS: MAG-TAB SR 84 MG PO (09:10)
[2023-09-28] MEDS: CARDIZEM CD 180 MG PO (09:10)
[2023-09-28 15:51] VITALS: BP 132/77
--- NOTE | 2023-09-28 16:02 | W.PN.HOSP.TC ---
Today's Communication/Plan
-
Continue antibiotics
Appreciate podiatry evaluation
Appreciate ID
Assessment / Plan
Assessment / Plan
Physical Exam
General: Well Developed, Well Nourished and No Apparent Distress
HEENT: Normocephalic, Moist mucous membranes and Atraumatic
Respiratory: Clear
Cardiac: S1/S2 and Regular Rhythm; No Murmur or Rub
GI: Soft, Non Tender, Non Distended and Normal Bowel Sounds; No Organomegaly
Rectal: Deferred by Provider
Musculoskeletal: No Clubbing, No Cyanosis and No Edema
Skin: Other (right big toe erythema and tenderness and swelling ); No Rash
Neuro: Nonfocal/grossly intact

Assessment/Plan
# Right big toe infection likely cellulitis secondary to toenail resection
-Foot x-ray showed no osteomyelitis
-Vancomycin for now
-Podiatry consulted
-Consulted ID, recommendations appreciated
Paroxysmal atrial fibrillation
-Continue Eliquis
-Continue diltiazem
Bradycardia status post pacemaker
Essential hypertension
-Continue Diltiazem
History of syncope
History of C5 chip fracture
Hyperlipidemia
-Continue Zetia
BPH
-Continue alfuzosin
Full code
DVT prophylaxis�SCDs
Regular diet
Anticipated Discharge: 24 - 48 hours
Subjective/Interval History
-
Date of Service: September 28, 2023
Patient was seen and examined. He reported persistent right toe redness but denied any other new symptoms or complaints.
Objective Data
-
Labs:
Laboratory Results
09/28/23
06:51
WBC 9.6
Hgb 13.7
Hct 39.2
Plt Count 253
Sodium 138
Potassium 4.0
Chloride 105
Carbon Dioxide 28
BUN 13
Creatinine 0.9
Glucose 95
Calcium 9.2
Vital Signs:
Vital Signs
Temp Pulse Resp BP Pulse Ox
98 F 64 20 132/77 97
09/28/23 15:51 09/28/23 15:51 09/28/23 15:51 09/28/23 15:51 09/28/23 15:51
I&O
09/27/23 09/28/23 09/29/23
06:59 06:59 06:59
Intake Total 480 / 480
Balance 480 / 480
[2023-09-28] MEDS: NON-FORMULARY ITEM 10 MG PO (17:14)
--- NOTE | 2023-09-28 17:19 | W.CS.POD ---
Consult Summary - Podiatry
-
This patient is a 68 year old male admitted yesterday (09/27/23) for cellulitis of the right great toe. He had a nail matricectomy (permanent nail removal-Phenol and alcohol) on 09/20/23 in his media operator's office (Dr. Figueroa Edgar). He subsequently
developed increased swelling and redness and revisited the DPM 4 days later, was prescribed Erythromycin, and after a couple of days without improvement, he sent a picture of the toe to the doctor, and was told to go the ER. The patient denies any
fever, chills or night sweats, nor any stiffness behind his knee or in the groin. 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 He has been doing his own dressing changes while in the hospital, using Medi
Honey.
Afebrile, VSS.
DP/PT pulses 2/4, bilaterally.
NVSI bilaterally.
The right great toenail bed, cleansed of dressing material, appears to be granular and intact. No tracking wound. There is significant soft tissue irritation and hypertrophy of the proximal nail fold, but no active purulence or malodor noted. There
is moderate erythema/cellulitis extending along the dorsal aspect of the great toe from the proximal fold to the base. No lymphangitis. The right foot does exhibit mild to moderate pitting edema to the midfoot.
There is no pain about the deep structures of the right great toe on direct pressure or manipulation. No bone related pain.
09/27/23 XRAYs, right foot: Soft tissue swelling involving the great toe. No cortical disruption, osseous erosion or periosteal reaction involving the right great toe and foot. No radiographic evidence for osteomyelitis.
Assessment/Plan:
Cellulitis of the right great toe, S/P 8 days matricectomy.
Paroxysmal Atrial Fibrillation on Eliquis.
Bradycardia with pacemaker.
HTN
Hyperlipidemia
BPH
This is likely a bacterial infection secondary to a chemical burn (Phenol) of the nail matrix.
Without a tracking wound or any discharge, no abscess or bone involvement is suspected.
Continue IV antibiotics.
Wound care orders made.
Will monitor over the next day or two. If symptoms persist or worsen, will order MRI, otherwise consider transition to PO antibiotics at that time.
--- NOTE | 2023-09-28 18:20 | CM ---
met with patient at bedside.patient lives alone in house with no gilles,his bed and bath is on the second level,he amb i and is i with his adl.his pcp is dr una stearns and he uses [facility] in [place].he wilkins had a vn after a fall but canot
remember agency .he has never been in ip rehab facility.patient signed imm letter.
PMH:afib on eliquis,nina with ppm,hld,bph
patient is adm with right great toe cellulitis after toenail resection,on iv vanco,holding eliquis.plan:patient will dc home with no needs.
[2023-09-28] MEDS: ELIQUIS 5 MG PO (21:24)
[2023-09-28] MEDS: ZETIA 10 MG PO (21:24)
[2023-09-28 23:37] VITALS: BP 128/73
[2023-09-29] MEDS: VANCOCIN 275 MG IV (05:47)
[2023-09-29] MEDS: ELIQUIS 5 MG PO (08:08)
[2023-09-29] MEDS: CARDIZEM CD 180 MG PO (08:08)
[2023-09-29] MEDS: MAG-TAB SR 84 MG PO (08:08)
[2023-09-29 08:13] VITALS: BP 131/66
--- NOTE | 2023-09-29 09:16 | PHA.VAN.FU ---
Vancomycin Assessment / Plan
- Assessment
Renal Function: SCR Increasing (0.8>0.9)
WBC's are: Trending Down (13.1>9.6)
In the past 24 hrs, patient has been: Afebrile
- Dosing Plan
Continue: Vancomycin 1250mg IV Q12hrs
- Monitoring Plan
No level(s) ordered at this time: Will order levels according to vancomycin dosing protocol
- Follow Up
Pharmacy will continue to follow.
Vancomycin Follow UP
- -
Patient Age: 68
Patient Sex: Male
Vancomycin Day #: 3
Indication: Skin And Soft Tissue
Requesting Provider: Dr. Boudreaux
Pertinent Antimicrobial Allergies:
Penicillins - Rash
Sulfa (Sulfonamide Antibiotics) - Rash
levofloxacin - Rash
Height / Weight:
Height 5 ft 10 in
Actual Weight 86.682 kg
IBW in k
Adjusted BW in k.5
Pertinent Past Medical History: nail matricectomy (permanent nail removal 09/20/23 in [facility] office
- Vital Signs / Lab Results
Temp Pulse Resp BP Pulse Ox
98.2 F 61 18 131/66 95
09/29/23 08:13 09/29/23 08:13 09/29/23 08:13 09/29/23 08:13 09/29/23 08:13
Lab Results - Hematology
09/27/23 09/28/23
15:14 06:51
WBC 13.1 H 9.6
Lab Results - Chemistry
09/27/23 09/28/23
15:14 06:51
BUN 13 13
Creatinine 0.8 0.9
Estimated Creat Clear 82
Albumin 4.4
[2023-09-29 12:09] LABS: Blood Urea Nitrogen 14 mg/dl (9-20); Calcium 9.7 mg/dl (8.4-10.2); Carbon Dioxide 26 mmol/L (22-30); Chloride 105 mmol/L (98-107); Estimated Creatinine Clearance 82 ml/min; Glucose 95 mg/dl (70-99); Potassium 4.5 mmol/L (3.5-5.1); Sodium 140 mmol/L (135-145); eGFR > 60.00
--- NOTE | 2023-09-29 12:14 | CON.ID ---
Consultation
-
Date/Time Consultation Requested: 09/28/2023 1614
Date/Time Consultation Performed: 09/29/2023 1130
Requesting Provider: Dr. Peters
Performing Provider: Dr. Sal
Reason for Consultation: Right toe cellulitis
Chief Complaint / Past History
History of Present Illness
Dave Montilla is a 68-year-old man being evaluated regarding right toe cellulitis. History is obtained from chart review, along with patient interview.
Patient has a history of mal-growth of his right hallux toenail, and reports that approximately a week ago the toenail was unroofed and removed. Following that it was treated with phenol. Several days later, he began to note some erythema of the
toe with some spread towards the base of the hallux. He saw his mat making machine tender and was prescribed erythromycin, but still noted some swelling in the area and ultimately came to the emergency room for further evaluation. Here he was started on empiric
vancomycin, and Infectious diseases asked to comment on further antimicrobial therapy.
Currently he denies any significant pain in the area although the unroofed nailbed is tender to touch. He notes some swelling of his foot. Redness of the first toe has persisted, but does not seem to spread up the foot. He denies any fevers or
chills.
Past History
Additional Past Medical History:
HTN
Dyslipidemia
BPH
Arrhythmia
Additional Past Surgical History:
Tonsillectomy
Hernia repair
PPM placement
Allergy History:
Sulfa (Sulfonamide Antibiotics) Allergy (Intermediate, Verified 05/08/23 05:41)
Rash
levofloxacin Allergy (Verified 05/08/23 05:41)
Rash
Penicillins Allergy (Verified 05/08/23 05:41)
Rash as child
Medications Reviewed: Yes
Current Antibiotics:
Vancomycin
Social History
Tobacco: Non-Smoker
Alcohol: None
Drug: None
Employment: Employed
Family History
Family History: Not Pertinent
Review of Systems
Vital Signs
Temp Pulse Resp BP Pulse Ox
98.2 F 61 18 131/66 95
09/29/23 08:13 09/29/23 08:13 09/29/23 08:13 09/29/23 08:13 09/29/23 08:13
Physical Exam
Physical Exam
Constitutional: No Acute Distress, Comfortable and Non-toxic
Eyes: No Conjunctival Hemorrhage and Sclera Anicteric
Oral: No Thrush and No Ulcers
Cardiovascular: Regular Rate and S1/S2; Negative S3/S4
Pulmonary: Clear; Negative Wheezes, Rales or Rhonchi
Gastrointestinal: Soft and Non Tender
Extremities: Edema (1+ right lower extremity) and Other (Right hallux s/p nail removal. Erythema noted the toe, but without significant warmth or tenderness. No extension of erythema onto foot proper.)
Neurological: Awake and Alert
Psychological: Calm
Lab / Diagnostic Study Results
09/29/23 11:42
Abs Immat Gran (auto) 0.1 10^3/uL (0-0.05) H 09/28/23 06:51
Absolute Neuts (auto) 7.0 10^3/uL (1.4-6.5) H 09/28/23 06:51
Absolute Lymphs (auto) 1.5 10^3/uL (1.2-3.4) 09/28/23 06:51
Absolute Monos (auto) 0.8 10^3/uL (0.1-0.6) H 09/28/23 06:51
Absolute Basos (auto) 0.0 10^3/uL (0-0.2) 09/28/23 06:51
Immature Gran % 0.5 % (0-0.5) 09/28/23 06:51
Neutrophils % 73.5 % (42.2-75.2) 09/28/23 06:51
Lymphocytes % 15.3 % (20.5-51.1) L 09/28/23 06:51
Monocytes % 8.8 % (1.7-9.3) 09/28/23 06:51
Eosinophils % 1.6 % (0-6) 09/28/23 06:51
Basophils % 0.3 % (0-2) 09/28/23 06:51
ESR 32 mm/hour (0-20) H 09/27/23 15:14
C-Reactive Protein 86.20 mg/L (0.0-10.00) H 09/27/23 15:14
Microbiology Results
Micro:
09/28/23 17:59 MRSA Screen - Pending
Nose
Imaging:
09/27/2023 X-ray, right foot: No evidence of bony destructive process. Mild degenerative change of the first metatarsophalangeal joint. Please see full dictation for additional detail. Film personally viewed.
Assessment / Plan
Right hallux erythema
-Not clear if cellulitis or local reaction to prior applied phenol
HTN
Dyslipidemia
BPH
Arrhythmia
Multiple antibiotic allergies
Recommendations:
Transition to cephalexin 500 mg p.o. 4 times daily.
Local care to the nailbed area. Would continue with lower extremity elevation at least 2 hours out of every 6.
[2023-09-29 12:35] LABS: Hematocrit 41.6 % (39.0-52.0); Hemoglobin 14.5 g/dL (13.0-18.0); Mean Corp Hgb Conc. 34.9 g/dL (33.0-37.0); Mean Corpuscular Hgb 30.6 pg (27.0-31.0); Mean Corpuscular Volume 87.8 fL (80.0-94.0); Mean Platelet Volume 9.4 fL (7.4-10.4); Platelet Count 305 10^3/uL (130-400); Red Blood Cell Count 4.74 10^6/uL (4.70-6.10); White Blood Cell Count 9.2 10^3/uL (4.8-10.8)
[2023-09-29 12:50] LABS: % Basophils 0.5 % (0-2); % Eosinophils 1.2 % (0-6); % Immature Granulocytes 0.7 % (0-0.5); % Lymphocytes 17.7 % (20.5-51.1); % Monocytes 7.3 % (1.7-9.3); % Neutrophils 72.6 % (42.2-75.2); Absolute Basophils 0.1 10^3/uL (0-0.2); Absolute Eosinophils 0.1 10^3/uL (0-0.7); Absolute Immature Granulocytes 0.1 10^3/uL (0-0.05); Absolute Lymphocytes 1.6 10^3/uL (1.2-3.4); Absolute Monocytes 0.7 10^3/uL (0.1-0.6); Absolute Neutrophils 6.7 10^3/uL (1.4-6.5); Nucleated Red Blood Cells % 0 % (-)
[2023-09-29] MEDS: KEFLEX 500 MG PO (13:02)
--- NOTE | 2023-09-29 13:25 | W.PN.HOSP.TC ---
Today's Communication/Plan
-
Discharge today
Assessment / Plan
Assessment / Plan
Physical Exam
General: Not in acute distress.
HEENT: Normocephalic
Respiratory: Clear to Auscultation Bilaterally
Cardiac: S1/S2 and Regular Rhythm
GI: Soft, Non Tender, Non Distended and Normal Bowel Sounds
Musculoskeletal: No Cyanosis and No Edema
Skin: Other (right big toe erythema and tenderness and swelling -- COVERED IN BANDAGE)
Neuro: Nonfocal/grossly intact

Assessment/Plan
# Right big toe infection likely cellulitis secondary to toenail resection
-Foot x-ray showed no osteomyelitis
-Status post Vancomycin
-Podiatry consulted
-Consulted ID, recommendations appreciated: okay to transition to Cephalexin 500 mg p.o. 4 times daily. Local care to the nailbed area. Continue with lower extremity elevation at least 2 hours out of every 6 as per ID.
-ID appreciated
Paroxysmal atrial fibrillation
-Continue Eliquis
-Continue diltiazem
Bradycardia status post pacemaker
Essential hypertension
-Continue Diltiazem
History of syncope
History of C5 chip fracture
Hyperlipidemia
-Continue Zetia
BPH
-Continue alfuzosin
Full code
DVT prophylaxis�Eliquis
Regular diet
More than 30 minutes spent in discharge including
Final examination of the patient
Summarizing hospital stay
Instructions for continuing care to all relevant caregivers
Preparation of discharge records, prescriptions, and referral forms
Total time spent (in minutes): 39
Anticipated Discharge: Today
Subjective/Interval History
-
Date of Service: September 29, 2023
Patient was seen and examined. He denied any fever or any other new symptoms or complaints.
Objective Data
-
Labs:
Laboratory Results
09/29/23
11:42
WBC 9.2
Hgb 14.5
Hct 41.6
Plt Count 305 D
Sodium 140
Potassium 4.5
Chloride 105
Carbon Dioxide 26
BUN 14
Creatinine 0.9
Glucose 95
Calcium 9.7
Vital Signs:
Vital Signs
Temp Pulse Resp BP Pulse Ox
98.2 F 61 18 131/66 95
09/29/23 08:13 09/29/23 08:13 09/29/23 08:13 09/29/23 08:13 09/29/23 08:13
I&O
09/28/23 09/29/23 09/30/23
06:59 06:59 06:59
Intake Total 480 / 480 1080 / 1080
Balance 480 / 480 1080 / 1080
[2023-09-29 15:20] VITALS: BP 125/77
--- NOTE | 2023-09-29 15:58 | W.DS.TRANS ---
Addendum entered and electronically signed by Daniel Martin DPM 09/29/23 16:35:
Wound care instructions:
Epsom salts and lukewarm water soaks of the left great toe for 10-15 minutes once daily. Dab dry the toe and apply bacitracin and a band aid.
Leave the left toe open to air at night.
Patient can wear a roomy shoe or a sandal to tolerance.
Original Note:
DC Summary - Clubhouse Manager
-
Discharge Instructions:
Sleep Apnea Risk Low
Discharge Diagnosis/Procedures Right big toe infection likely cellulitis
secondary to toenail resection
Paroxysmal atrial fibrillation
Bradycardia status post pacemaker
Essential hypertension
History of syncope
History of C5 chip fracture
Hyperlipidemia
Benign Prostatic Hyperplasia
Diet Low Sodium,Low Cholesterol,Low Fat
Activity As tolerated
Instructions:
Stand-Alone Forms:
Changes to Home Medications: Yes
Discharge Medications:
DC Medications w/original date entered in [facility]
alfuzosin 10 mg tablet,extended release 24 hr 10 mg PO QPM Urinary issue 06/23/20
ezetimibe 10 mg tablet (Zetia) 10 mg PO HS High Cholesterol 03/20/23
magnesium 250 mg tablet 250 mg PO DAILY Supplement 03/20/23
apixaban 5 mg tablet (Eliquis) 5 mg PO BID Blood clot prevention/tx #60 tabs 05/09/23
diltiazem HCl 180 mg capsule,extended release 24 hr 180 mg PO DAILY Arrhythmia #30 caps 05/09/23
azithromycin 250 mg tablet 250 mg PO PER PKG DIR 09/27/23
bacitracin zinc 500 unit/gram topical ointment 1 applic topical DAILY #1,022.4 grams 09/29/23
cephalexin 500 mg capsule 500 mg PO QID #27 caps 09/29/23
Home Medication Changes
Use bacitracin as directed by burrer operator Dr. Daniel Martin -- Bacitracin will be provided to you by your nurse on discharge.
Cephalexin is a new medication.
Pending Results: Yes
Additional Pending Results:
MRSA screen results
Total time spent discharging patient (in min): 39
[2023-09-29] MEDS: BACITRACIN OINTMENT 1 APPLIC TOPICAL (16:03)
--- NOTE | 2023-09-29 16:20 | CM ---
Dave is being discharged home today. He has no needs for discharge.
Plan: Discharge to home with no needs identified.
PCP: Steve Naik
Pharmacy: [facility] in [place]
--- NOTE | 2023-09-29 16:35 | W.PN.POD ---
Today's Communication
Today's Communication
Patient for discharge. Wound care instructions given.
Assessment / Plan
-
Assessment/Plan:
Irritation/Erythema of the right great toe, S/P [address] Edgar's office.
Paroxysmal Atrial Fibrillation on Eliquis.
Bradycardia with pacemaker.
HTN
Hyperlipidemia
BPH
This issue was most likely due to a chemical burn/reaction (Phenol) of the great toe nail matrix.
Without a tracking wound or any discharge, no clinical suspicion of infection remains.
ID note appreciated. Patient transferred to PO antibiotics (Cephalexin).
Anticipate discharge today.
Wound care instructions:
Epsom salt and lukewarm water soaks once daily for 10-15 minutes, followed by bacitracin application to the proximal nail fold and a band aid.
At night, leave the toe open to air.
Will follow in the office.
Subjective
Chief Complaint
Red and swollen left great toe.
Subjective
Patient resting comfortably in chair at bedside.
No complaints of pain in the right great toe.
Denies fever, chills or sweats.
Objective
Temp Pulse Resp BP Pulse Ox
98.2 F 61 18 131/66 95
09/29/23 08:13 09/29/23 08:13 09/29/23 08:13 09/29/23 08:13 09/29/23 08:13
09/29/23 11:42
09/29/23 11:42
Vital Signs and Lab results were reviewed.
DP/PT pulses 2/4, bilaterally.
NVSI bilaterally.
The right great toenail bed, cleansed of dressing material, appears to be clean, dry and intact. No tracking wound. There is proximal nail fold is without disruption, irritation or acute process, essentially dry. The moderate erythema extending
along the dorsal aspect of the great toe from the proximal fold to the base is clearly diminishing. No local signs of infection noted. The right foot does exhibit residual mild to moderate pitting edema to the midfoot.
There is no pain about the deep structures of the right great toe on direct pressure or manipulation. No bone related pain.
09/27/23 XRAYs, right foot: Soft tissue swelling involving the great toe. No cortical disruption, osseous erosion or periosteal reaction involving the right great toe and foot. No radiographic evidence for osteomyelitis.
--- NOTE | 2023-10-03 16:57 | W.DCSUMMARY ---
Discharge Summary
Discharge Data
Date of Admission: 09/27/23
Date of Discharge: 09/29/23
Total time spent discharging patient (in min): 39
-
Pending Results: No
Hospital Course
68-year-old male with past medical history of paroxysmal atrial fibrillation on Eliquis, bradycardia with pacemaker, hypertension, syncopal episode with C5 chip fracture, hyperlipidemia, and benign prostatic hyperplasia, presented for evaluation of
right great toe infection as requested his clinical education coordinator. Patient was noted to have a chronic displaced right big toe toenail that is displaced upwards due to an injury several years ago; about 1 week prior to presentation, patient underwent toenail
removal by his clinical education coordinator Dr. Figueroa Edgar at [place] [facility]. After the surgery he put a Band-Aid on the area instead of applying gauze like he was supposed to and 3 days later the toenail and surrounding toe became red and painful. He was started on
erythromycin by his clinical education coordinator but infection has not improved. Patient was started on intravenous Vancomycin. Podiatry and Infectious Disease were consulted. Podiatry mentioned that this was likely a bacterial infection secondary to a chemical burn
(Phenol) of the nail matrix, and that without a tracking wound or any discharge, no abscess or bone involvement was suspected. Infectious Disease recommended switching to Keflex. Patient's symptoms improved and he was stable for discharge.
Discharge Plan
-
Patient Disposition: Home (Routine Discharge)
Discharge Diagnosis/Procedures: Right big toe infection likely cellulitis secondary to toenail resection
Paroxysmal atrial fibrillation
Bradycardia status post pacemaker
Essential hypertension
History of syncope
History of C5 chip fracture
Hyperlipidemia
Benign Prostatic Hyperplasia
Condition: Good
Diet: Low Fat, Low Cholesterol and Low Sodium
Activity: As tolerated
Activity Restrictions/Additional Instructions:
Follow wound care instructions as per Dr. Daniel Martin (clinical education coordinator)
Continue with lower extremity elevation at least 2 hours out of every 6 hours
Epsom salts and lukewarm water soaks of the left great toe for 10-15 minutes once daily. Dab dry the toe and apply bacitracin and a band aid. Leave the left toe open to air at night.
Patient can wear a roomy shoe or a sandal to tolerance.
Referrals:
Ruthann Naik, [Family Provider] - in less than 1 week
Additional Discharge Medication Instructions: Use bacitracin as directed by clinical education coordinator Dr. Daniel Martin -- Bacitracin will be provided to you by your nurse on discharge.
Cephalexin is a new medication.
Prescriptions:
New
bacitracin zinc 500 unit/gram Ointment
1 applic topical DAILY Qty: 1022.4 0RF
cephalexin 500 mg Capsule
500 mg PO QID Qty: 27 0RF
Continued
alfuzosin 10 MG tablet extended release 24 hr
10 mg PO QPM
magnesium 250 mg Tablet
250 mg PO DAILY
ezetimibe [Zetia] 10 mg Tablet
10 mg PO HS
Eliquis 5 mg Tablet
5 mg PO BID Qty: 60 0RF
diltiazem HCl 180 mg Capsule,Extended Release 24hr
180 mg PO DAILY Qty: 30 0RF
azithromycin 250 mg tablet
250 mg PO PER PKG DIR
Discharge Orders:
Discharge Patient (As Directed); Ordered 09/29/23
Ordered By: Adarsh Peters
Discharge Date and Time
Discharge Date/Time: 09/29/23 16:54
Print Language: PERSIAN
== END 2023-09-29 16:54 | disposition home or self-care (01) | DRG 863 ==
LOC: 4 EAST ACU 17:03
PROVIDERS: ADMITTING PHYSICIAN Hospitalist; ATTENDING PHYSICIAN Hospitalist; CONSULT PHYSICIAN Internal Medicine Infectious Disease; CONSULT PHYSICIAN Podiatrist Foot & Ankle Surgery; EMERGENCY PHYSICIAN Student in an Organized Health Care Education/Training Program; FAMILY PHYSICIAN Family Medicine
DX: T81.41XA Infection following a procedure, superficial incisional surgical site, initial encounter (principal); L03.031 Cellulitis of right toe; E11.9 Type 2 diabetes mellitus without complications; E78.00 Pure hypercholesterolemia, unspecified; I10 Essential (primary) hypertension; I48.0 Paroxysmal atrial fibrillation; I25.10 Atherosclerotic heart disease of native coronary artery without angina pectoris; N40.0 Benign prostatic hyperplasia without lower urinary tract symptoms; Y83.8 Other surgical procedures as the cause of abnormal reaction of the patient, or of later complication, without mention of misadventure at the time of the procedure; Y92.9 Unspecified place or not applicable; Z82.49 Family history of ischemic heart disease and other diseases of the circulatory system; Z79.01 Long term (current) use of anticoagulants; Z88.1 Allergy status to other antibiotic agents; Z88.0 Allergy status to penicillin; Z88.2 Allergy status to sulfonamides; Z95.0 Presence of cardiac pacemaker
CPT/HCPCS: 73630; 80048; 80053; 85025; 85652; 86140; 86803; 87070; 96365; 96366; 99285

== ENCOUNTER 2023-10-06 14:05 | Emergency (ER) | payer OTHER, SELFPAY ==
[2023-10-06 14:11] VITALS: BMI 27.5
[2023-10-06 14:13] VITALS: BP 144/81
[2023-10-06 14:16] VITALS: BP 144/81
--- NOTE | 2023-10-06 14:34 | ED.GENMED ---
History of Present Illness
General
Chief Complaint: Cardiac Symptoms
Source: patient
Exam Limitations: none
Time Seen by Provider: 10/06/23 14:16
Nursing documentation reviewed up to this point in time: agreed with
History of Present Illness
History of Present Illness:
68-year-old male with history of atrial fibrillation on Eliquis, hypertension, hyperlipidemia presenting for evaluation of heart palpitations. Patient states that he was sitting in his chair at about 130 this morning reading emails when he suddenly
started having heart palpitations and feelings that his heart was racing. He uses at home pulse ox which showed his heart rate was in the 140s. He stayed awake until his heart rate returned to the normal range at around 4 AM. He states that he
slept well although this morning when he woke up he states that when he is walking around his pulse ox is going into the low 100s. When he is sitting his heart rate seems to be normal. Patient called 911 based on his mild tachycardia while
ambulating.
Patient denies any associated chest pain, shortness of breath, dizziness, lightheadedness, visual changes, numbness/tingling. At this time patient is asymptomatic.
Patient reports compliance to Eliquis.
Past History
Past History
ED Past Medical History: HTN, Hypercholesterolemia and Other (BPH); Negative Arrthythmia, CAD, IDDM or NIDDM
ED Past Surgical History: Tonsilectomy and Other (Hernia repair)
Social History
Tobacco: Non-smoker
Alcohol: None
Drug: None
Personal:
Living: with family
Employment: Employed
Family History
Family History: Hypertension and Other (Two brothers with cardiac problems on with 2 FL's in 60's, other brother has pacemaker)
Review of Systems
Review of Systems
Allergies reviewed?: Yes
All Other Systems: ROS reviewed and negative except as documented in HPI and ROS
Phy Exam
Physical Exam
Physical Exam:
Vitals: Mildly hypertensive, otherwise vital signs stable. Afebrile
General: Patient is well appearing, no acute distress. Nontoxic appearing
Skin: Warm and dry, no rashes or lesions
Head: Normocephalic, atraumatic
Eyes: Sclera nonicteric. EOMs intact. No nystagmus.
Throat: Protecting airway
Neck: Normal ROM, no cervical spine tenderness, no meningismus. Trachea midline. No JVD
Cardiac: Regular rate and rhythm, no murmurs. Equal pulses bilaterally.
Pulm: Normal respiratory effort, no wheezes, rales, rhonchi heard on exam.
Abdomen: Abdomen soft. No abdominal tenderness.
Extremities: No evidence of cyanosis or edema. Great distal pulses
Neuro: AAOx3. CN II-XII intact. No focal neurologic deficits. Strength 5 out of 5 in upper and lower extremities. Patient fully intact.
Psychiatric: Normal affect.
Course
Orders/Labs/Results
Orders:
Orders
10/06/23 14:10
EKG [Electrocardiogram (*1)] Stat
Reason for Study: Atrial Fibrillation
EKG- Treatment ONCE
10/06/23 14:31
Complete Blood Count/With Diff Urgent
Comprehensive Metabolic Panel Urgent
Troponin I Urgent
10/06/23 15:03
Orthostatic VS- Treatment ONCE
10/06/23 15:57
0.9% Sodium Chloride 500 ml [Nss] 500 ml IV BOLUS
10/06/23 16:25
Troponin I Urgent
10/06/23 16:30
Electrocardiogram (*1) Urgent
Reason for Study: Palpitations
EKG- Treatment ONCE
Abnormal Lab Results
10/06/23
14:31
RBC 4.60 L 10^6/uL
(4.70-6.10)
MCH 31.1 H pg
(27.0-31.0)
Absolute Lymphs (auto) 1.1 L 10^3/uL
(1.2-3.4)
Neutrophils % 79.2 H %
(42.2-75.2)
Lymphocytes % 14.9 L %
(20.5-51.1)
Glucose 108 H mg/dl
(70-99)
10/06/23 14:31
10/06/23 14:31
Vital Signs
Initial and Last Documented VS:
Initial Vital Signs
Pulse Resp Pulse Ox
73 8 100
10/06/23 14:12 10/06/23 14:12 10/06/23 14:12
Last Documented Vital Signs
Temp Pulse Resp BP Pulse Ox
98.8 F 79 16 144/81 97
10/06/23 14:16 10/06/23 14:16 10/06/23 14:16 10/06/23 14:16 10/06/23 14:20
MDM/Problems Addressed
Differential Diagnosis Includes:
Not limited to: Paroxysmal atrial fibrillation, PVCs, cardiac arrhythmia, dehydration, orthostatic hypotension, doubt ACS
MDM/Problems Addressed:
68-year-old male presenting following palpitations early this morning and associated exertional tachycardia today at home. No associated shortness of breath, dizziness, lightheadedness, chest pain. Patient reports heart rates up into the low 100s
earlier today while walking around house. Patient diagnosed with atrial fibrillation earlier this year and started on Eliquis. Came to emergency department given concern that he was back in atrial fibrillation. Patient compliant with Eliquis.
Asymptomatic at this time. Very mildly hypertensive, otherwise vital signs are stable. He is afebrile. Physical exam as above. Patient is extremely well-appearing, in no apparent distress. Heart regular rate and rhythm. Lungs clear
bilaterally. No focal neurologic deficits noted patient is perfusing well. Great distal pulses. An EKG was obtained on arrival which shows normal sinus rhythm without any acute ischemic changes. Labs were initiated. Patient does have a
pacemaker�will interrogate. Will check orthostatic vital signs, walking pulse ox/heart rate.
Did speak with sales promotion representative at [employer]. They report no arrhythmias noted on his device since the most recent interrogation which was on September 19, 2023. They report no PVCs noted during time of patient's palpitations early this morning around
130.
Labs noted. No clinically significant abnormalities. Initial troponin is 0.022. Very low suspicion for ACS although given somewhat exertional component to tachycardia�will repeat troponin 2 hours. Will give fluids, possibly very mild elevation
due to mild dehydration. Patient has no history of [place].
No orthostatic hypotension noted. Nurse did walk patient and states that he tolerated it very well, walking without difficulty with normal pulse ox and heart rate in the 80s with occasional rise to low 90s. No associated chest pain or shortness of
breath at that time. Will continue to monitor and repeat troponin.
Repeat troponin of 0.018. Stable. Do not suspect ACS. Patient has been asymptomatic throughout the entire time the emergency department. Work appears been negative. Stable for discharge with cardiology follow-up. Return precautions discussed
at length. Patient seen with attending physician.
Chronic conditions affecting care:
Atrial fibrillation on Eliquis, hypertension
Acute Exacerbation and/or Progression of Chronic Illness:
Acutely hypertensive
*Pulse Oximetry
Patient hypoxic: no
*EKG
Interpreted by ED Provider?: Yes
EKG Intrepretation Date: 10/06/23
Interpretation: normal
Comparison EKG: changes noted
Heart Rate: 75
Rate: normal
Rhythm: sinus arrhythmia
[place]: normal axis
Interval: normal interval
QRS Pattern: normal QRS
Ischemia: no ischemia
*Loft Worker Interpretation
Rate: normal
Interpretation: normal
Heart Rate: 76
Rhythm: sinus
*Critical Care Note
Total Time (30-74mins, 75-104mins- exclusive of procedures): Not Applicable
ED Attending Note
-
Portions of this chart may have been created with voice recognition software.� Occasional wrong word or��sound alike� substitutions may have occurred due to the inherent limitations of voice recognition software.
Discharge Plan
Departure
Patient Disposition: Home (Routine Discharge)
Date of Disposition: 10/06/23
Time of Disposition: 17:20
Patient with high blood pressure during this ER visit?: Yes
Condition: Good
Covid-19: Not Applicable
Discharge Problem:
History of palpitations
Instructions: Palpitations ED
Prescriptions:
No Action
alfuzosin 10 MG tablet extended release 24 hr
10 mg PO QPM
magnesium 250 mg Tablet
250 mg PO DAILY
ezetimibe [Zetia] 10 mg Tablet
10 mg PO HS
Eliquis 5 mg Tablet
5 mg PO BID Qty: 60 0RF
diltiazem HCl 180 mg Capsule,Extended Release 24hr
180 mg PO DAILY Qty: 30 0RF
azithromycin 250 mg tablet
250 mg PO PER PKG DIR
bacitracin zinc 500 unit/gram Ointment
1 applic topical DAILY Qty: 1022.4 0RF
cephalexin 500 mg Capsule
500 mg PO QID Qty: 27 0RF
Referrals:
Dave Serra MD [Active] - Call in 1-3 days for appt
Ruthann Naik DO [Family Provider] -
Activity Restrictions/Additional Instructions:
RETURN TO THE EMERGENCY DEPARTMENT WITH ANY FEVERS, CHEST PAIN, SHORTNESS OF BREATH, PERSISTENT ELEVATIONS IN HEART RATE, LIGHTHEADEDNESS/DIZZINESS, WORSENING IN CURRENT SYMPTOMS, OR ANY OTHER CONCERNS
-As discussed�it is important to stay well-hydrated. Continue to take all of your medication as prescribed. You should take it easy over the next few days until you are cleared by cardiology.
-Follow-up with Dr. Serra for further evaluation/management
Monitor your symptoms closely and return to the emergency department with any acute worsening/new symptoms
Interventions
Interventions:
*General Assessment Last Done: 10/06/23 14:18
*Neglect/Abuse Screening Last Done: 10/06/23 14:18
ED- Fall Risk Assessment Last Done: 10/06/23 14:20
*ED COVID-19 Vaccine History Last Done: 10/06/23 14:18
ED- Pulmonary Assessment Last Done: 10/06/23 14:20
ED- Cardiac Assessment Last Done: 10/06/23 14:20
Discharge Date and Time
Print Language: CHILEAN
[2023-10-06 14:51] LABS: % Basophils 0.4 % (0-2); % Eosinophils 0.4 % (0-6); % Immature Granulocytes 0.5 % (0-0.5); % Lymphocytes 14.9 % (20.5-51.1); % Monocytes 4.6 % (1.7-9.3); % Neutrophils 79.2 % (42.2-75.2); Absolute Lymphocytes 1.1 10^3/uL (1.2-3.4); Absolute Monocytes 0.4 10^3/uL (0.1-0.6); Hematocrit 40.2 % (39.0-52.0); Hemoglobin 14.3 g/dL (13.0-18.0); Mean Corp Hgb Conc. 35.6 g/dL (33.0-37.0); Mean Corpuscular Hgb 31.1 pg (27.0-31.0); Mean Corpuscular Volume 87.4 fL (80.0-94.0); Nucleated Red Blood Cells % 0 % (-); Platelet Count 352 10^3/uL (130-400); White Blood Cell Count 7.6 10^3/uL (4.8-10.8)
[2023-10-06 15:02] LABS: ALT (SGPT) 28 U/L (0-50); AST (SGOT) 25 U/L (17-59); Albumin 4.2 g/dl (3.5-5.0); Alkaline Phosphatase 56 U/L (38-126); Blood Urea Nitrogen 10 mg/dl (9-20); Calcium 9.6 mg/dl (8.4-10.2); Carbon Dioxide 25 mmol/L (22-30); Chloride 106 mmol/L (98-107); Estimated Creatinine Clearance 93 ml/min; Glucose 108 mg/dl (70-99); Potassium 4.3 mmol/L (3.5-5.1); Sodium 139 mmol/L (135-145); Total Bilirubin 1.2 mg/dl (0.2-1.3); eGFR > 60.00
[2023-10-06 15:13] LABS: Troponin I 0.022 ng/ml
[2023-10-06 15:30] VITALS: BP 138/80; BP 141/80; BP 142/87; PULSE 75; PULSE 80; PULSE 84
[2023-10-06] MEDS: NSS 500 IV (16:26)
[2023-10-06 17:11] LABS: Troponin I 0.018 ng/ml
== END 2023-10-06 18:15 | disposition home or self-care (01) ==
LOC: EMR 14:05
PROVIDERS: Physician Assistant; EMERGENCY PHYSICIAN Emergency Medicine; FAMILY PHYSICIAN Family Medicine
DX: R00.2 Palpitations (principal); I48.91 Unspecified atrial fibrillation; I10 Essential (primary) hypertension; E78.00 Pure hypercholesterolemia, unspecified; E11.9 Type 2 diabetes mellitus without complications; I49.8 Other specified cardiac arrhythmias; I25.10 Atherosclerotic heart disease of native coronary artery without angina pectoris; N40.0 Benign prostatic hyperplasia without lower urinary tract symptoms; I49.5 Sick sinus syndrome; M19.90 Unspecified osteoarthritis, unspecified site; Z79.01 Long term (current) use of anticoagulants; Z79.4 Long term (current) use of insulin; Z95.0 Presence of cardiac pacemaker
CPT/HCPCS: 99284; 93288; 80053; 84484; 85025; 93005

== ENCOUNTER 2023-11-04 20:07 | Inpatient (IN) | payer OTHER, SELFPAY ==
[2023-11-04 15:36] VITALS: BP 125/77
[2023-11-04 15:55] LABS: % Basophils 0.2 % (0-2); % Immature Granulocytes 0.6 % (0-0.5); % Lymphocytes 6.6 % (20.5-51.1); % Monocytes 8.2 % (1.7-9.3); % Neutrophils 84.4 % (42.2-75.2); Absolute Immature Granulocytes 0.1 10^3/uL (0-0.05); Absolute Lymphocytes 1.2 10^3/uL (1.2-3.4); Absolute Monocytes 1.5 10^3/uL (0.1-0.6); Absolute Neutrophils 15.1 10^3/uL (1.4-6.5); Hematocrit 38.1 % (39.0-52.0); Hemoglobin 13.3 g/dL (13.0-18.0); Mean Corp Hgb Conc. 34.9 g/dL (33.0-37.0); Mean Corpuscular Hgb 30.7 pg (27.0-31.0); Mean Platelet Volume 9.3 fL (7.4-10.4); Nucleated Red Blood Cells % 0 % (-); Platelet Count 268 10^3/uL (130-400); Red Blood Cell Count 4.33 10^6/uL (4.70-6.10); Red Cell Dist. Width 12.7 % (11.5-14.5); White Blood Cell Count 17.8 10^3/uL (4.8-10.8)
[2023-11-04 16:19] LABS: ALT (SGPT) 57 U/L (0-50); AST (SGOT) 62 U/L (17-59); Albumin 4.1 g/dl (3.5-5.0); Alkaline Phosphatase 66 U/L (38-126); Blood Urea Nitrogen 16 mg/dl (9-20); Calcium 8.9 mg/dl (8.4-10.2); Carbon Dioxide 24 mmol/L (22-30); Chloride 97 mmol/L (98-107); Glucose 115 mg/dl (70-99); Potassium 4.2 mmol/L (3.5-5.1); Sodium 136 mmol/L (135-145); Total Bilirubin 2.1 mg/dl (0.2-1.3); Total Protein 7.1 g/dl (6.3-8.2); eGFR > 60.00
--- NOTE | 2023-11-04 17:13 | ED.GENMED ---
History of Present Illness
General
Chief Complaint: Skin Problem
Source: patient
Exam Limitations: none
Time Seen by Provider: 11/04/23 16:58
Nursing documentation reviewed up to this point in time: agreed with
History of Present Illness
History of Present Illness:
68-year-old male with a past medical history of hypertension, hyperlipidemia, atrial fibrillation on Eliquis who presents to the emergency room for evaluation of right foot pain, redness, swelling. Patient had toenail removed at the end of August and
unfortunately had subsequent infection of the toe and foot requiring hospitalization in early September. He was ultimately discharged on oral antibiotic and completed a course of cephalexin. He says that redness in the area improved but the wound has
not healed and he has had persistent right lower extremity edema since the infection. He has been following with podiatry (Dr. Sanchez). He says that over the past few days he has noticed gradually increasing redness, pain, swelling particularly in
the foot and toes on the right although he is now having streaking redness up the leg. He reports that he is having fevers and chills. He has noted some scant drainage from right first toe wound. Came to the emergency room with concern for
infection once again. He denies any chest pain, shortness of breath, denies any other complaints.
Past History
Past History
ED Past Medical History: HTN, Hypercholesterolemia and Other (BPH); Negative Arrthythmia, CAD, IDDM or NIDDM
ED Past Surgical History: Tonsilectomy and Other (Hernia repair)
Social History
Tobacco: Non-smoker
Alcohol: None
Drug: None
Personal:
Living: with family
Employment: Employed
Family History
Family History: Hypertension and Other (Two brothers with cardiac problems on with 2 MA's in 60's, other brother has pacemaker)
Review of Systems
Review of Systems
All Other Systems: ROS reviewed and negative except as documented in HPI and ROS
Constitutional: Reports fever and chills
Respiratory: Denies trouble breathing
Cardiac: Denies chest pain
ABD/GI: Denies abdominal pain, nausea or vomiting
: Denies flank pain
Musculoskeletal: Reports edema; Denies neck pain or back pain
Skin: Reports other (Redness pain and swelling of the foot)
Neurological: Denies headache
Phy Exam
Physical Exam
Physical Exam:
General: Awake, alert, oriented x3; no acute distress
Head: Normocephalic, atraumatic
Eyes: Conjunctiva normal
Throat: Airway intact, handling secretions
Neck: Trachea midline
Lungs: Clear to auscultation bilaterally, no wheezing, rales, rhonchi
Heart: Regular rate and rhythm, no murmurs, gallops, or rubs
Neuro: No gross deficits
Skin: Patient has erythema, warmth, swelling and significant induration on the dorsum of the right foot extends to all of the toes of the right foot and has streaking redness up the right lower leg terminates around the tibial tuberosity; there is
an area of markedly increased induration directly over the midfoot but no fluctuance or crepitus; he has a wound on the exposed nailbed of the right first toe with scant amount of purulent drainage
Extremities: +2 pitting edema right lower extremity, no edema in the left lower extremity; skin findings as above
Scores
Heart Failure Risk
Heart Failure Risk Score: Not Applicable
Heart Score for Chest Pain Patients
STEMI patient?: Not applicable
Withdrawal Assessment of Alcohol
Withdrawal Assessment Completed?: Not applicable
Course
Orders/Labs/Results
Orders:
Orders
11/04/23 15:48
CMP [Comprehensive Metabolic Panel] Urgent
Complete Blood Count/With Diff Urgent
11/04/23 17:02
Wound Culture [Wound/Abscess/Other Culture] Urgent
NICHOLE Source: Toe
Specimen Description:
CR Toe(s) Min 2 Vw Right Urgent
Comment:
Reason For Exam: right 1st toe infection
11/04/23 17:13
US Periph Venous LOWER Ext RT Urgent
Comment:
Reason For Exam: persistent RLE swelling
Abnormal Lab Results
11/04/23
15:48
WBC 17.8 H 10^3/uL
(4.8-10.8)
RBC 4.33 L 10^6/uL
(4.70-6.10)
Hct 38.1 L %
(39.0-52.0)
Abs Immat Gran (auto) 0.1 H 10^3/uL
(0-0.05)
Absolute Neuts (auto) 15.1 H 10^3/uL
(1.4-6.5)
Absolute Monos (auto) 1.5 H 10^3/uL
(0.1-0.6)
Immature Gran % 0.6 H %
(0-0.5)
Neutrophils % 84.4 H %
(42.2-75.2)
Lymphocytes % 6.6 L %
(20.5-51.1)
Chloride 97 L mmol/L
(98-107)
Glucose 115 H mg/dl
(70-99)
Total Bilirubin 2.1 H mg/dl
(0.2-1.3)
AST 62 H U/L
(17-59)
ALT 57 H U/L
(0-50)
11/04/23 15:48
11/04/23 15:48
Vital Signs
Initial and Last Documented VS:
Initial Vital Signs
Temp Pulse Resp BP Pulse Ox
36.8 C 91 16 125/77 94
11/04/23 15:36 11/04/23 15:36 11/04/23 15:36 11/04/23 15:36 11/04/23 15:36
Last Documented Vital Signs
Temp Pulse Resp BP Pulse Ox
36.8 C 91 16 125/77 94
11/04/23 15:36 11/04/23 15:36 11/04/23 15:36 11/04/23 15:36 11/04/23 15:36
MDM/Problems Addressed
Differential Diagnosis Includes:
Foot infection, DVT
MDM/Problems Addressed:
68-year-old male presents to the emergency room for evaluation of redness, pain, swelling of the right foot extending from the area of a chronic wound on the right first toe since August. Admitted in early September for similar infection. Vitals
normal. Exam as above. He had lab work in triage including a CBC which showed a leukocytosis of 17.8. CMP marginally abnormal LFTs unlikely of acute clinical significance. Suspect severe right lower extremity cellulitis secondary to wound. Will
check an x-ray of the foot. Patient also concerned about what is become chronic edema in the right lower leg since his prior infection/hospitalization in late August/early September�will send for right lower extremity ultrasound rule out DVT as a cause
for his chronic edema. Will cover with IV antibiotics for his cellulitis. Plan for admission.
*Radiology
Radiology exam reviewed: radiology read reviewed
*Pulse Oximetry
Patient hypoxic: no
*Critical Care Note
Total Time (30-74mins, 75-104mins- exclusive of procedures): Not Applicable
Data Reviewed
Review of Other/Old Records Reveals: Labs, Records and Discharge Summary
Source: patient and records
Patient Management
Discussion with other providers: Hospitalist (Discussed with hospitalist)
Escalation/DeEscalation of care consider admission/obs:
Admission indicate
ED Attending Note
-
Portions of this chart may have been created with voice recognition software.� Occasional wrong word or��sound alike� substitutions may have occurred due to the inherent limitations of voice recognition software.
Discharge Plan
Departure
Presentation/result/management discussed w/ accepting MD/DO: Hospitalist
Prescriptions:
No Action
alfuzosin 10 MG tablet extended release 24 hr
10 mg PO QPM
magnesium 250 mg Tablet
250 mg PO DAILY
ezetimibe [Zetia] 10 mg Tablet
10 mg PO HS
Eliquis 5 mg Tablet
5 mg PO BID Qty: 60 0RF
diltiazem HCl 180 mg Capsule,Extended Release 24hr
180 mg PO DAILY Qty: 30 0RF
azithromycin 250 mg tablet
250 mg PO PER PKG DIR
bacitracin zinc 500 unit/gram Ointment
1 applic topical DAILY Qty: 1022.4 0RF
cephalexin 500 mg Capsule
500 mg PO QID Qty: 27 0RF
Discharge Date and Time
Print Language: MACEDONIAN
[2023-11-04] MEDS: VANCOCIN 540 MG IV (17:24)
[2023-11-04 17:30] VITALS: BMI 27.9
[2023-11-04 17:32] VITALS: BP 130/72
[2023-11-04] MEDS: VANCOCIN 310 MG IV (17:52)
[2023-11-04] MEDS: VANCOCIN 310 ML IV (17:52)
--- NOTE | 2023-11-04 19:28 | HPS.HSE ---
Family Physician
-
Family Physician: Ruthann Naik
Chief Complaint
-
Redness and Swelling of Right Lower Extremity
History of Present Illness
Patient is 68 yo male with a hx of Afib on Eliquis presents for fevers, chills, and right lower leg redness and swelling that has been progressively worsening over past 3 days. He had his right big toenail removed at the end of August, but it became
infected and he was hospitalized for a couple days at the beginning of September. He received vancomycin in the hospital and was discharged on cephalexin. After discharge he had some edema in his foot without redness and the toenail was not healing
well. Per his assisted living executive director's recommendation he has been using compression socks for the swelling. However, 3 days ago his foot became red, warm, more swollen and he developed intermittent fevers and chills. He notes he's had athlete's foot in the past
and that he's had raw irritated skin between his toes recently. Denies chest pain, SOB, abdominal pain, or n/v/d.
Medical History
Past Medical History
Past Medical History: Reports Other
Additional Past Medical History:
Paroxysmal Atrial Fibrillation
Bradycardia s/p Pacemaker
Syncopal Episode with C5 Chip Fracture
Essential Hypertension
Hyperlipidemia
BPH
Past Surgical History: Reports Other
Additional Past Surgical History:
Tonsillectomy
Hernia Repair
Social History
Tobacco: Non-smoker
Alcohol: None
Drug: None
Family History
Family History: Not pertinent
Allergies / Home Medications
Allergies reflects when Allergies were last updated in [employer].
Home Medications with original date entered in [facility] [employer]
Allergy/Medication List:
Allergies
Allergy/AdvReac Type Severity Reaction Status Date / Time
Sulfa (Sulfonamide Allergy Intermediate Rash Verified 11/04/23 17:31
Antibiotics)
levofloxacin Allergy Rash Verified 11/04/23 17:31
Penicillins Allergy Rash Verified 11/04/23 17:31
sulfamethoxazole Allergy Rash Verified 11/04/23 17:31
[From Bactrim]
trimethoprim [From Bactrim] Allergy Rash Verified 11/04/23 17:31
Home Medications
alfuzosin 10 mg tablet,extended release 24 hr 10 mg PO QPM Urinary issue 06/23/20
ezetimibe 10 mg tablet (Zetia) 10 mg PO HS High Cholesterol 03/20/23
apixaban 5 mg tablet (Eliquis) 5 mg PO BID Blood clot prevention/tx #60 tabs 05/09/23
cholecalciferol (vitamin D3) 50 mcg (2,000 unit) tablet (Vitamin D3) 50 mcg PO QPM 11/04/23
diltiazem HCl 180 mg capsule,24 hr,extended release 180 mg PO DAILY 11/04/23
magnesium oxide 250 mg PO DAILY 11/04/23
Review of Systems
-
A 12 point ROS was completed and negative except as noted: Yes
Constitutional: Reports Fever and Chills
Respiratory: Denies Cough or Trouble Breathing
Cardiac: Denies Chest Pain or Palpitations
Abdomen/GI: Denies Abdominal Pain, Nausea, Vomiting or Diarrhea
Skin: Reports See HPI
Physical Exam
Vital Signs
Vital Signs
Temp Pulse Resp BP Pulse Ox
98.1 F 76 16 130/72 98
11/04/23 17:32 11/04/23 17:32 11/04/23 15:36 11/04/23 17:32 11/04/23 17:32
Physical Exam
General: Comfortable and Conversant
HEENT: Anicteric and Moist mucous membranes
Respiratory: Clear and Non Labored Respirations
Cardiac: S1/S2 and Regular Rhythm
GI: Soft and Non Tender
Rectal: Deferred by Provider
Musculoskeletal: No Clubbing, No Cyanosis and Edema, Right Lower Extremity
Skin: Warm, Dry and Other (Right Lower Ext: Moderate erythema from toes to above the ankle, noted maceration between the toes)
Neuro: Awake, Alert, Oriented and No Motor Deficits
Laboratory Results
-
11/04/23 15:48
11/04/23 15:48
Laboratory Results
Total Bilirubin 2.1 mg/dl (0.2-1.3) H 11/04/23 15:48
AST 62 U/L (17-59) H 11/04/23 15:48
ALT 57 U/L (0-50) H 11/04/23 15:48
Alkaline Phosphatase 66 U/L (38-126) 11/04/23 15:48
Data Reviewed
-
Lab Data: Labs Reviewed by me
Impression/Plan
-
Right Lower Extremity Cellulitis
-Continue Ancef
-Await wound culture
Paroxysmal Atrial Fibrillation
-Continue Eliquis
-Continue Diltiazem
Essential Hypertension
-Continue Diltiazem
Hyperlipidemia
-Continue Zetia
BPH
-Continue alfuzosin
Hx Bradycardia s/p Pacemaker
Hx 5 Chip Fracture
DVT proph: Eliquis
Code Status: Full Code
--- NOTE | 2023-11-04 19:31 | W.PN.UPDATE ---
Update Note
Progress Note Update
This is addendum to H&P written by Demi Chase on 11/04/2023.
68-year-old male past medical history of paroxysmal atrial fibrillation on Eliquis, bradycardia with pacemaker, hypertension, syncopal episode with C5 chip fracture, hyperlipidemia, BPH recently admitted for cellulitis of right lower extremity after
toenail resection back again for recurrent cellulitis of the right lower extremity. Cytosis on labs. Wound culture pending, vancomycin given in ER but continue cefazolin. Transaminitis on labs continue to monitor.
--- NOTE | 2023-11-04 20:07 | EDRN ---
This RN followed the original dosing for the vancomycin which is as follows; 2000mg in a bag volume of 310mls for a duration of 1 hour and 33 minutes. When the vancomycin was done infusing there was fluid still left in the bag. This RN then called
pharmacy and spoke with Sneha who said that was a error. Sneha put in the correct order as follows to finish the fluid in the bag; vancomycin 2000mg, bag volume of 540mls for a duration of 2 hours.
[2023-11-04 22:00] VITALS: BP 143/79
[2023-11-04 22:01] VITALS: BMI 27.5
[2023-11-04 22:56] VITALS: BMI 27.5
[2023-11-04] MEDS: ELIQUIS 5 MG PO (22:59)
[2023-11-04] MEDS: ZETIA 10 MG PO (22:59)
[2023-11-04] MEDS: LOTRIMIN 1% CREAM 1 APPLIC TOPICAL (23:12)
[2023-11-04] MEDS: ANCEF 10 IV (23:13)
--- NOTE | 2023-11-04 23:42 | PTCARENOTE ---
Patient arrived to unit via stretcher around 21: 55 with dx of cellulitis. Patient AAOX3. Pleasant and cooperative with care. RLE red and swollen. Patinet denies pain or discomfort at current time. Oriented to unit. Call pereyra within reach.
[2023-11-05 07:31] VITALS: BP 129/67
[2023-11-05 08:18] LABS: Hematocrit 34.7 % (39.0-52.0); Hemoglobin 12.1 g/dL (13.0-18.0); Mean Corp Hgb Conc. 34.9 g/dL (33.0-37.0); Mean Corpuscular Hgb 30.6 pg (27.0-31.0); Mean Corpuscular Volume 87.8 fL (80.0-94.0); Mean Platelet Volume 9.4 fL (7.4-10.4); Platelet Count 260 10^3/uL (130-400); Red Blood Cell Count 3.95 10^6/uL (4.70-6.10); Red Cell Dist. Width 12.8 % (11.5-14.5); White Blood Cell Count 11.8 10^3/uL (4.8-10.8)
[2023-11-05] MEDS: ANCEF 10 IV ×3 (08:35→23:11)
[2023-11-05] MEDS: CARDIZEM CD 180 MG PO (08:36)
[2023-11-05] MEDS: ELIQUIS 5 MG PO ×2 (08:36→19:51)
[2023-11-05] MEDS: LOTRIMIN 1% CREAM 1 APPLIC TOPICAL ×2 (08:36→19:52)
[2023-11-05 09:11] LABS: ALT (SGPT) 64 U/L (0-50); AST (SGOT) 59 U/L (17-59); Albumin 3.4 g/dl (3.5-5.0); Alkaline Phosphatase 73 U/L (38-126); Blood Urea Nitrogen 12 mg/dl (9-20); Calcium 8.6 mg/dl (8.4-10.2); Carbon Dioxide 26 mmol/L (22-30); Chloride 102 mmol/L (98-107); Direct Bilirubin 0.4 mg/dl (0.0-0.4); Estimated Creatinine Clearance 82 ml/min; Glucose 97 mg/dl (70-99); Potassium 3.9 mmol/L (3.5-5.1); Sodium 139 mmol/L (135-145); Total Bilirubin 1.7 mg/dl (0.2-1.3); Total Protein 6.2 g/dl (6.3-8.2); eGFR > 60.00
--- NOTE | 2023-11-05 14:19 | W.PN.HOSP.TC ---
Today's Communication/Plan
-
cont iv abx
f/u cultures
ct rle
Assessment / Plan
Assessment / Plan
Physical Exam
General: Comfortable and Conversant
HEENT: Anicteric and Moist mucous membranes
Respiratory: Clear and Non Labored Respirations
Cardiac: S1/S2 and Regular Rhythm
GI: Soft and Non Tender
Rectal: Deferred by Provider
Musculoskeletal: No Clubbing, No Cyanosis and Edema, Right Lower Extremity
Skin: Warm, Dry and Other (Right Lower Ext: Moderate erythema from toes to above the ankle, noted maceration between the toes; right foot swelling)
Neuro: Awake, Alert, Oriented and No Motor Deficits
Right Lower Extremity Cellulitis
Sepsis
-Continue Ancef
-CT RLE w/ contrast to rule out abscess
-Await wound culture, blood cultures
Paroxysmal Atrial Fibrillation
-Continue Eliquis
-Continue Diltiazem
Essential Hypertension
-Continue Diltiazem
Hyperlipidemia
-Continue Zetia
BPH
-Continue alfuzosin
Hx Bradycardia s/p Pacemaker
Hx 5 Chip Fracture
DVT proph: Eliquis
Code Status: Full Code
Anticipated Discharge: 24 - 48 hours
Subjective/Interval History
-
Date of Service: November 05, 2023
no acute events overnight
Objective Data
-
Labs:
Laboratory Results
11/05/23
07:31
WBC 11.8 H
Hgb 12.1 L
Hct 34.7 L
Plt Count 260
Sodium 139
Potassium 3.9
Chloride 102
Carbon Dioxide 26
BUN 12
Creatinine 0.9
Glucose 97
Calcium 8.6
Total Bilirubin 1.7 H
AST 59
ALT 64 H
Alkaline Phosphatase 73
Vital Signs:
Vital Signs
Temp Pulse Resp BP Pulse Ox
99.3 F 64 20 129/67 96
11/05/23 07:31 11/05/23 07:31 11/05/23 07:31 11/05/23 07:31 11/05/23 07:31
Review of Systems
-
History Source: Patient
All other systems: Not reviewed unless documented
Data Reviewed
-
Diagnostic Radiology: Image personally visualized and interpreted and Report Reviewed by me
Labs: Labs Reviewed by me
--- NOTE | 2023-11-05 14:25 | CM ---
Patient seen bedside.
IA completed.
Patient with dx cellulitis
patient lives alone in a 2 story home, 1 step to enter.
Patient has a shower chair at home.
Patient drives.
Patient says he will Uber home.
PMD: Dr Pool
Pharmacy: [facility]
Plan: home, watch for needs.
[2023-11-05 16:11] VITALS: BP 149/79
[2023-11-05] MEDS: NON-FORMULARY ITEM 1 UNIT PO (17:16)
[2023-11-05] MEDS: ZETIA 10 MG PO (19:51)
[2023-11-05 23:30] VITALS: BP 128/68
[2023-11-05] MEDS: TYLENOL 650 MG PO (23:34)
[2023-11-06 07:50] VITALS: BP 122/57
[2023-11-06 07:54] LABS: Hemoglobin 12.2 g/dL (13.0-18.0); Mean Corp Hgb Conc. 34.9 g/dL (33.0-37.0); Mean Corpuscular Hgb 31.8 pg (27.0-31.0); Mean Corpuscular Volume 91.1 fL (80.0-94.0); Mean Platelet Volume 9.6 fL (7.4-10.4); Platelet Count 293 10^3/uL (130-400); Red Blood Cell Count 3.84 10^6/uL (4.70-6.10); Red Cell Dist. Width 12.9 % (11.5-14.5); White Blood Cell Count 9.6 10^3/uL (4.8-10.8)
[2023-11-06 08:32] LABS: ALT (SGPT) 59 U/L (0-50); AST (SGOT) 53 U/L (17-59); Albumin 3.2 g/dl (3.5-5.0); Alkaline Phosphatase 82 U/L (38-126); Blood Urea Nitrogen 12 mg/dl (9-20); Calcium 8.7 mg/dl (8.4-10.2); Carbon Dioxide 28 mmol/L (22-30); Chloride 103 mmol/L (98-107); Estimated Creatinine Clearance 93 ml/min; Glucose 88 mg/dl (70-99); Potassium 3.9 mmol/L (3.5-5.1); Sodium 139 mmol/L (135-145); Total Bilirubin 1.3 mg/dl (0.2-1.3); Total Protein 5.9 g/dl (6.3-8.2); eGFR > 60.00
[2023-11-06] MEDS: ELIQUIS 5 MG PO ×2 (08:41→21:18)
[2023-11-06] MEDS: CARDIZEM CD 180 MG PO (08:41)
[2023-11-06] MEDS: ANCEF 10 IV ×3 (08:42→23:07)
[2023-11-06] MEDS: LOTRIMIN 1% CREAM 1 APPLIC TOPICAL ×2 (08:42→21:18)
--- NOTE | 2023-11-06 11:04 | WOUNDNOTE ---
R GREAT TOE NAIL DORSAL
--- NOTE | 2023-11-06 11:05 | WOUNDNOTE ---
R LEG AND FOOT
--- NOTE | 2023-11-06 11:05 | WOUNDNOTE ---
WON RN NOTE: Asked to see patient for R leg/foot cellulitis. PMH: HTN,IDDM,BPH, A FIB. R great toe nail removed in August by [employer] Sales Associate for infection. [employer] sent patient to ER for cellulitis of same leg. R leg CT scan showed no osteo or abscess,
extreme cellulitis reported. Nurse Kassandra states patient's toes being cleaned with soap and water then fungal cream applied. Cellulitis improving compared to yesterday, on IV abx. Patient with edema to foot with redness and tenderness, can not
tolerate compression. Dry intact scab to R great toe, no drainage from toe or foot. Heels are intact. Recommend continue same regimen, instructed patient importance of leg elevation. Pillow in use under R leg and foot stool provided by nurse to use
when oob in chair. Will sign off unless needed. Patient to follow with [employer] upon discharge.
--- NOTE | 2023-11-06 13:53 | W.PN.HOSP.TC ---
Today's Communication/Plan
-
f/u cultures
Abx
wound care
Assessment / Plan
Assessment / Plan
Physical Exam
General: Comfortable and Conversant
HEENT: Anicteric and Moist mucous membranes
Respiratory: Clear and Non Labored Respirations
Cardiac: S1/S2 and Regular Rhythm
GI: Soft and Non Tender
Rectal: Deferred by Provider
Musculoskeletal: No Clubbing, No Cyanosis and Edema, Right Lower Extremity
Skin: Warm, Dry and Other (Right Lower Ext: Moderate erythema from toes to above the ankle, noted maceration between the toes; right foot swelling)
Neuro: Awake, Alert, Oriented and No Motor Deficits
Right Lower Extremity Cellulitis
Sepsis
-Continue Ancef
-CT RLE w/ no evidence of abscess
-Await wound culture, blood cultures, (spiked 100.8F on 11/04/ evening)
Paroxysmal Atrial Fibrillation
-Continue Eliquis
-Continue Diltiazem
Essential Hypertension
-Continue Diltiazem
Hyperlipidemia
-Continue Zetia
BPH
-Continue alfuzosin
Hx Bradycardia s/p Pacemaker
Hx 5 Chip Fracture
DVT proph: Eliquis
Code Status: Full Code
Anticipated Discharge: > 48 hours
Subjective/Interval History
-
Date of Service: November 06, 2023
erythema, swelling improved
Objective Data
-
Labs:
Laboratory Results
11/06/23
06:39
WBC 9.6
Hgb 12.2 L
Hct 35.0 L
Plt Count 293
Sodium 139
Potassium 3.9
Chloride 103
Carbon Dioxide 28
BUN 12
Creatinine 0.8
Glucose 88
Calcium 8.7
Total Bilirubin 1.3
AST 53
ALT 59 H
Alkaline Phosphatase 82
Vital Signs:
Vital Signs
Temp Pulse Resp BP Pulse Ox
98.0 F 67 18 122/57 96
11/06/23 07:50 11/06/23 07:50 11/06/23 07:50 11/06/23 07:50 11/06/23 07:50
Review of Systems
-
History Source: Patient
All other systems: Not reviewed unless documented
Data Reviewed
-
Diagnostic Radiology: Image personally visualized and interpreted and Report Reviewed by me
Labs: Labs Reviewed by me
[2023-11-06 15:13] VITALS: BP 135/68
[2023-11-06] MEDS: NON-FORMULARY ITEM 1 UNIT PO (15:45)
[2023-11-06] MEDS: ZETIA 10 MG PO (21:18)
[2023-11-06 23:05] VITALS: BP 134/70
[2023-11-06] MEDS: OCEAN, SALINE MIST 1 SPRAYS NASAL (23:57)
[2023-11-07 07:00] VITALS: BP 124/67
[2023-11-07] MEDS: ANCEF 10 IV ×2 (08:24→16:37)
[2023-11-07] MEDS: ELIQUIS 5 MG PO ×2 (08:25→20:23)
[2023-11-07] MEDS: LOTRIMIN 1% CREAM 1 APPLIC TOPICAL ×2 (08:25→20:23)
[2023-11-07] MEDS: CARDIZEM CD 180 MG PO (08:25)
[2023-11-07 08:35] LABS: Hematocrit 38.7 % (39.0-52.0); Hemoglobin 13.4 g/dL (13.0-18.0); Mean Corp Hgb Conc. 34.6 g/dL (33.0-37.0); Mean Corpuscular Hgb 31.3 pg (27.0-31.0); Mean Corpuscular Volume 90.4 fL (80.0-94.0); Platelet Count 352 10^3/uL (130-400); Red Blood Cell Count 4.28 10^6/uL (4.70-6.10); Red Cell Dist. Width 12.8 % (11.5-14.5)
[2023-11-07 10:17] LABS: ALT (SGPT) 62 U/L (0-50); AST (SGOT) 59 U/L (17-59); Albumin 3.7 g/dl (3.5-5.0); Alkaline Phosphatase 99 U/L (38-126); Blood Urea Nitrogen 13 mg/dl (9-20); Calcium 9.1 mg/dl (8.4-10.2); Carbon Dioxide 26 mmol/L (22-30); Chloride 103 mmol/L (98-107); Estimated Creatinine Clearance 93 ml/min; Glucose 96 mg/dl (70-99); Potassium 4.3 mmol/L (3.5-5.1); Sodium 140 mmol/L (135-145); Total Bilirubin 1.2 mg/dl (0.2-1.3); Total Protein 6.7 g/dl (6.3-8.2); eGFR > 60.00
--- NOTE | 2023-11-07 11:55 | PN.CDI ---
CDI
- -
CDI:
Physician Documentation Request
Admit Date: 11/04/23 20:07
Dear Doctor Otto,
Please review the following and provide your response in the progress notes.
Clinical Indicators:
- 11/03 WBC 17.8
- 11/04 Tmax 100.8
- 11/03 H&P 'Right Lower Extremity Cellulitis'
- 11/04 PN 'Sepsis'
Please clarify the following:
_Sepsis__ was present on admission
_Sepsis__ was not present on admission
Unable to determine
Use of terms such as suspected, likely, concern for, or probable (associated with a specific diagnosis that is being evaluated, monitored, or treated as if it exists) are acceptable and can be coded in the inpatient setting, when documented at the
time of discharge.
Thank you,
Lokesh Gill RN
CDI Specialist
Please use your independent medical judgment in providing your response.
--- NOTE | 2023-11-07 14:26 | CM ---
patient seen bedside.
Continue IV anbx.
Cx pending.
Patient aware of CM availability should needs arise.
Plan: home, possible VN. Watch for anbx.
--- NOTE | 2023-11-07 14:54 | W.PN.HOSP.TC ---
Addendum entered and electronically signed by Zain Menjivar MD 11/07/23 17:43:
_Sepsis__ was present on admission
Original Note:
Today's Communication/Plan
-
f/u cultures
cont abx
Assessment / Plan
Assessment / Plan
Physical Exam
General: Comfortable and Conversant
HEENT: Anicteric and Moist mucous membranes
Respiratory: Clear and Non Labored Respirations
Cardiac: S1/S2 and Regular Rhythm
GI: Soft and Non Tender
Rectal: Deferred by Provider
Musculoskeletal: No Clubbing, No Cyanosis and Edema, Right Lower Extremity
Skin: Warm, Dry and Other (Right Lower Ext: Moderate erythema from toes to above the ankle, noted maceration between the toes; right foot swelling)
Neuro: Awake, Alert, Oriented and No Motor Deficits
Right Lower Extremity Cellulitis, improving
Sepsis
-Continue Ancef
-CT RLE w/ no evidence of abscess
-Await wound culture, blood cultures, (spiked 100.8F on 11/04/ evening)
Paroxysmal Atrial Fibrillation
-Continue Eliquis
-Continue Diltiazem
Essential Hypertension
-Continue Diltiazem
Hyperlipidemia
-Continue Zetia
BPH
-Continue alfuzosin
Hx Bradycardia s/p Pacemaker
Hx 5 Chip Fracture
DVT proph: Eliquis
Code Status: Full Code
Anticipated Discharge: Within 24 hours
Subjective/Interval History
-
Date of Service: November 07, 2023
Erythema improving
Objective Data
-
Labs:
Laboratory Results
11/07/23
08:19
WBC 10.0
Hgb 13.4
Hct 38.7 L
Plt Count 352 D
Sodium 140
Potassium 4.3
Chloride 103
Carbon Dioxide 26
BUN 13
Creatinine 0.8
Glucose 96
Calcium 9.1
Total Bilirubin 1.2
AST 59
ALT 62 H
Alkaline Phosphatase 99
Vital Signs:
Vital Signs
Temp Pulse Resp BP Pulse Ox
98.6 F 68 16 124/67 97
11/07/23 07:00 11/07/23 07:00 11/07/23 07:00 11/07/23 07:00 11/07/23 07:00
I&O
11/06/23 11/07/23 11/08/23
06:59 06:59 06:59
Intake Total 960 / 960
Balance 960 / 960
Review of Systems
-
History Source: Patient
All other systems: Not reviewed unless documented
Data Reviewed
-
Diagnostic Radiology: Image personally visualized and interpreted and Report Reviewed by me
CT Scan: Image personally visualized and interpreted and Report Reviewed by me
Labs: Labs Reviewed by me
[2023-11-07 15:08] VITALS: BP 134/74
[2023-11-07] MEDS: NON-FORMULARY ITEM 1 UNIT PO (16:39)
[2023-11-07] MEDS: ZETIA 10 MG PO (20:23)
[2023-11-07 23:30] VITALS: BP 131/76
[2023-11-08 07:05] VITALS: BP 131/75
[2023-11-08] MEDS: ELIQUIS 5 MG PO (07:44)
[2023-11-08] MEDS: CARDIZEM CD 180 MG PO (07:44)
[2023-11-08] MEDS: ANCEF 10 IV ×2 (07:45)
[2023-11-08] MEDS: LOTRIMIN 1% CREAM 1 APPLIC TOPICAL (07:45)
[2023-11-08 07:56] LABS: Hematocrit 39.6 % (39.0-52.0); Hemoglobin 13.4 g/dL (13.0-18.0); Mean Corp Hgb Conc. 33.8 g/dL (33.0-37.0); Mean Corpuscular Hgb 30.4 pg (27.0-31.0); Mean Corpuscular Volume 89.8 fL (80.0-94.0); Platelet Count 405 10^3/uL (130-400); Red Blood Cell Count 4.41 10^6/uL (4.70-6.10); Red Cell Dist. Width 12.7 % (11.5-14.5); White Blood Cell Count 9.4 10^3/uL (4.8-10.8)
[2023-11-08 08:07] LABS: Albumin 3.7 g/dl (3.5-5.0); Carbon Dioxide 29 mmol/L (22-30); Estimated Creatinine Clearance 82 ml/min; eGFR > 60.00
[2023-11-08 08:19] LABS: ALT (SGPT) 52 U/L (0-50); AST (SGOT) 45 U/L (17-59); Alkaline Phosphatase 95 U/L (38-126); Blood Urea Nitrogen 12 mg/dl (9-20); Calcium 9.5 mg/dl (8.4-10.2); Chloride 103 mmol/L (98-107); Glucose 96 mg/dl (70-99); Potassium 4.8 mmol/L (3.5-5.1); Sodium 142 mmol/L (135-145); Total Bilirubin 1.1 mg/dl (0.2-1.3); Total Protein 6.9 g/dl (6.3-8.2)
[2023-11-08 11:00] VITALS: BP 142/88
--- NOTE | 2023-11-08 11:11 | W.PN.HOSP.TC ---
Addendum entered and electronically signed by Zain Menjivar MD 11/09/23 15:17:
[id number]
Original Note:
Today's Communication/Plan
-
transition to cephalexin 5 mg 4 times daily to complete 14-day course total of antibiotics
wound care
leg elevation
podiatry and pcp f/u
Assessment / Plan
Assessment / Plan
Physical Exam
General: Comfortable and Conversant
HEENT: Anicteric and Moist mucous membranes
Respiratory: Clear and Non Labored Respirations
Cardiac: S1/S2 and Regular Rhythm
GI: Soft and Non Tender
Rectal: Deferred by Provider
Musculoskeletal: No Clubbing, No Cyanosis and Edema, Right Lower Extremity
Skin: Warm, Dry and Other (Right Lower Ext: Moderate erythema from toes to above the ankle, noted maceration between the toes; right foot swelling)
Neuro: Awake, Alert, Oriented and No Motor Deficits
Right Lower Extremity Cellulitis, improving
Sepsis
-Ancef�transition to cephalexin 5 mg 4 times daily to complete 14-day course total of antibiotics as significant swelling initially although improved.
-CT RLE w/ no evidence of abscess
-Wound cultures with Streptococcus pyogenes, diphtheroids; blood cultures negative
�Wound care
� Follow-up podiatry outpatient
Paroxysmal Atrial Fibrillation
-Continue Eliquis
-Continue Diltiazem
Essential Hypertension
-Continue Diltiazem
Hyperlipidemia
-Continue Zetia
BPH
-Continue alfuzosin
Hx Bradycardia s/p Pacemaker
Hx 5 Chip Fracture
DVT proph: Eliquis
Code Status: Full Code
More than 30 minutes spent in discharge including
Final examination of the patient
Summarizing hospital stay
Instructions for continuing care to all relevant caregivers
Preparation of discharge records, prescriptions, and referral forms
Total time spent (35 in minutes):
Anticipated Discharge: Today
Subjective/Interval History
-
Date of Service: November 08, 2023
Erythema, swelling improved
Objective Data
-
Labs:
Laboratory Results
11/08/23
07:15
WBC 9.4
Hgb 13.4
Hct 39.6
Plt Count 405 H
Sodium 142
Potassium 4.8
Chloride 103
Carbon Dioxide 29
BUN 12
Creatinine 0.9
Glucose 96
Calcium 9.5
Total Bilirubin 1.1
AST 45
ALT 52 H
Alkaline Phosphatase 95
Vital Signs:
Vital Signs
Temp Pulse Resp BP Pulse Ox
98.2 F 74 20 131/75 99
11/08/23 07:05 11/08/23 07:05 11/08/23 07:05 11/08/23 07:05 11/08/23 07:45
I&O
11/07/23 11/08/23 11/09/23
06:59 06:59 06:59
Intake Total 960 / 960
Balance 960 / 960
Review of Systems
-
History Source: Patient
All other systems: Not reviewed unless documented
Data Reviewed
-
Diagnostic Radiology: Image personally visualized and interpreted and Report Reviewed by me
CT Scan: Image personally visualized and interpreted and Report Reviewed by me
Labs: Labs Reviewed by me
--- NOTE | 2023-11-08 11:16 | W.DS.TRANS ---
DC Summary - Territory Sales Representative
-
Discharge Instructions:
Sleep Apnea Risk Low
Discharge Diagnosis/Procedures
Right Lower Extremity Cellulitis, improving
Sepsis
Diet Low Cholesterol,Low Fat
Activity As tolerated
Instructions:
Stand-Alone Forms:
Changes to Home Medications: Yes
Discharge Medications:
DC Medications w/original date entered in [facility]
alfuzosin 10 mg tablet,extended release 24 hr 10 mg PO QPM Urinary issue 06/23/20
ezetimibe 10 mg tablet (Zetia) 10 mg PO HS High Cholesterol 03/20/23
apixaban 5 mg tablet (Eliquis) 5 mg PO BID Blood clot prevention/tx #60 tabs 05/09/23
cholecalciferol (vitamin D3) 50 mcg (2,000 unit) tablet (Vitamin D3) 50 mcg PO QPM Supplement 11/04/23
diltiazem HCl 180 mg capsule,24 hr,extended release 180 mg PO DAILY Heart Disease/Condition 11/04/23
magnesium oxide 250 mg PO DAILY Supplement 11/04/23
cephalexin 500 mg capsule 500 mg PO QID 11 days #44 caps 11/08/23
clotrimazole 1 % topical cream (Athlete's Foot (clotrimazole)) 1 applic topical BID #90 grams 11/08/23
Home Medication Changes
cephalexin 500 mg capsule 500 mg PO QID 11 days #44 caps 11/08/23
clotrimazole 1 % topical cream (Athlete's Foot (clotrimazole)) 1 applic topical BID #90 grams 11/08/23
Pending Results: No
--- NOTE | 2023-11-08 11:18 | CM ---
Patient seen bedside.
Denies home care needs.
IMM completed.
Friend will transport.
Plan:home no needs.
== END 2023-11-08 12:37 | disposition home or self-care (01) | DRG 872 ==
LOC: 4 WEST ACU 20:07
PROVIDERS: Emergency Medicine; Physician Assistant Medical; ADMITTING PHYSICIAN Hospitalist; ATTENDING PHYSICIAN Internal Medicine; EMERGENCY PHYSICIAN Emergency Medicine; FAMILY PHYSICIAN Family Medicine
DX: A41.9 Sepsis, unspecified organism (principal); L03.115 Cellulitis of right lower limb; B95.0 Streptococcus, group A, as the cause of diseases classified elsewhere; I10 Essential (primary) hypertension; E78.00 Pure hypercholesterolemia, unspecified; I25.10 Atherosclerotic heart disease of native coronary artery without angina pectoris; I48.0 Paroxysmal atrial fibrillation; N40.0 Benign prostatic hyperplasia without lower urinary tract symptoms; Z79.4 Long term (current) use of insulin; Z88.1 Allergy status to other antibiotic agents; Z88.0 Allergy status to penicillin; Z88.2 Allergy status to sulfonamides; Z79.01 Long term (current) use of anticoagulants; Z95.0 Presence of cardiac pacemaker
CPT/HCPCS: 73630; 73701; 80053; 82248; 85025; 85027; 87040; 87070; 87077; 87147; 87205; 87641; 93971; 96365; 96366; 96375; 99285; Q9967

== ENCOUNTER 2024-04-22 15:49 | Emergency (ER) | payer OTHER, SELFPAY ==
[2024-04-22 16:03] VITALS: BP 149/93
--- NOTE | 2024-04-22 16:05 | ED.GENMED ---
ED Provider Triage
-
Patient seen by provider in Triage?: Seen in Triage
Attestation: A medical screening examination has been initiated by a qualified medical provider. Based on the assessment performed at this time, it has been determined that an emergent medical condition may exist and the patient has been informed
that further medical evaluation and possible additional diagnostic testing may be needed.
HPI: 69-year-old male presents to the emergency department for evaluation of heart palpitations and a rapid heartbeat beginning this morning. Has a [employer]tronic pacemaker. Did contact his claim investigator but did not receive a call back. Feels well,
denies chest pain or shortness of breath. Sees Dr. Serra
GENERAL: Alert , in no apparent distress
EYE: No visual abnormalities.
NECK: Trachea midline
ENT: No visible abnormalities.
LUNGS: No acute respiratory distress
NEUROLOGICAL: Alert and oriented
SKIN: Skin intact. No visible changes.
MUSCULOSKELETAL: Moving extremities normally
PSYCH: Normal and appropriate interaction.
This is a medical evaluation conducted in person to initiate diagnostic evaluation and provide initial therapeutics. Please see further documentation by the treating clinician.
History of Present Illness
General
Chief Complaint: Heart Rate Problem
Time Seen by Provider: 04/22/24 19:11
History of Present Illness
History of Present Illness:
69-year-old male presents the emergency department for evaluation of an elevated heart rate this morning. He states he was woken from sleep with a heart rate exceeding 100, since that time it is improved however states that is atypical for him to
have persistent heart rate elevations greater than 70 bpm. He denies chest pain or shortness of breath.
Past History
Past History
ED Past Medical History: HTN, Hypercholesterolemia and Other (BPH); Negative Arrthythmia, CAD, IDDM or NIDDM
ED Past Surgical History: Tonsilectomy and Other (Hernia repair)
Social History
Tobacco: Non-smoker
Alcohol: None
Drug: None
Personal:
Living: with family
Employment: Employed
Family History
Family History: Hypertension and Other (Two brothers with cardiac problems on with 2 UT's in 60's, other brother has pacemaker)
Review of Systems
Review of Systems
Allergies reviewed?: Yes
All Other Systems: ROS reviewed and negative except as documented in HPI and ROS
Phy Exam
Physical Exam
Physical Exam:
GEN: Well appearing, NAD, WDWN
HEENT: Oral mucosa moist, no scleral icterus
Cardiac: Regular rateAnd rhythm, no murmurs
Lung: No respiratory distress, no tachypnea
MSK: No gross deformity or injuries
Skin: Good color, no pallor or jaundice, no rashes
Neuro: AO x3, moves all extremities freely
Psych: Calm, cooperative
Course
Orders/Labs/Results
Orders:
Orders
04/22/24 15:50
Electrocardiogram (*1) Urgent
Reason for Study: Tachycardia
EKG- Treatment ONCE
04/22/24 16:12
Complete Blood Count/With Diff Urgent
Comprehensive Metabolic Panel Urgent
Magnesium Urgent
Abnormal Lab Results
04/22/24
16:12
Absolute Neuts (auto) 6.6 H 10^3/uL
(1.4-6.5)
Absolute Lymphs (auto) 0.9 L 10^3/uL
(1.2-3.4)
Neutrophils % 82.2 H %
(42.2-75.2)
Lymphocytes % 11.1 L %
(20.5-51.1)
Glucose 121 H mg/dl
(70-99)
04/22/24 16:12
04/22/24 16:12
Vital Signs
Initial and Last Documented VS:
Initial Vital Signs
Temp Pulse Resp BP Pulse Ox
98.6 F 95 18 149/93 96
04/22/24 16:03 04/22/24 16:03 04/22/24 16:03 04/22/24 16:03 04/22/24 16:03
Last Documented Vital Signs
Temp Pulse Resp BP Pulse Ox
97.8 F 85 16 156/93 98
04/22/24 18:01 04/22/24 19:30 04/22/24 19:30 04/22/24 19:20 04/22/24 19:30
MDM/Problems Addressed
MDM/Problems Addressed:
Patient's device was interrogated showing no cardiac dysrhythmia in the past 30 days. Device is functioning appropriately. Workup is reassuring, heart rate remained stable in the 80s and a normal sinus rhythm throughout emergency department stay.
Recommend he follow-up as an outpatient with his claim investigator
*Critical Care Note
Total Time (30-74mins, 75-104mins- exclusive of procedures): Not Applicable
ED Attending Note
-
Portions of this chart may have been created with voice recognition software.� Occasional wrong word or��sound alike� substitutions may have occurred due to the inherent limitations of voice recognition software.
Discharge Plan
Departure
Patient Disposition: Home (Routine Discharge)
Date of Disposition: 04/22/24
Time of Disposition: 19:40
Patient with high blood pressure during this ER visit?: No
Discharge Problem:
Normal sinus rhythm
Instructions: Pacemaker check
Prescriptions:
No Action
alfuzosin 10 MG tablet extended release 24 hr
10 mg PO QPM
ezetimibe [Zetia] 10 mg Tablet
10 mg PO HS
Eliquis 5 mg Tablet
5 mg PO BID Qty: 60 0RF
diltiazem HCl 180 mg Capsule,Extended Release 24 Hr
180 mg PO DAILY
magnesium oxide 250 mg magnesium Tablet
250 mg PO DAILY
cholecalciferol (vitamin D3) [Vitamin D3] 50 mcg (2,000 unit) Tablet
50 mcg PO QPM
clotrimazole [Athlete's Foot (clotrimazole)] 1 % Cream
1 applic topical BID Qty: 90 0RF
cephalexin 500 mg capsule
500 mg PO QID 11 Days Qty: 44 0RF
Referrals:
Ruthann Naik DO [Family Provider] -
Activity Restrictions/Additional Instructions:
Your pacemaker was called this. At this time we have no concerns for any major problems causing your slight elevation of heart rate. This is likely due to your heart organic electrical activity overriding the pacemaker activity which is not
harmful. As long as you have no dizziness, shortness of breath, or chest pain, please feel free to call your claim investigator for further discussion
Interventions
Interventions:
*Risk Screen - Suicide Last Done: 04/22/24 16:03
*General Assessment Last Done: 04/22/24 16:03
*Neglect/Abuse Screening Last Done: 04/22/24 16:03
ED- Fall Risk Assessment Last Done: 04/22/24 19:26
*ED COVID-19 Vaccine History Last Done: 04/22/24 16:03
*Nursing Disposition Last Done: 04/22/24 20:15
ED- Cardiac Assessment Last Done: 04/22/24 19:22
ED- Pulmonary Assessment Last Done: 04/22/24 19:22
Discharge Date and Time
Discharge Date/Time: 04/22/24 20:16
Print Language: BRUNEIAN
[2024-04-22 16:23] LABS: % Basophils 0.4 % (0-2); % Eosinophils 0.1 % (0-6); % Immature Granulocytes 0.4 % (0-0.5); % Lymphocytes 11.1 % (20.5-51.1); % Monocytes 5.8 % (1.7-9.3); % Neutrophils 82.2 % (42.2-75.2); Absolute Lymphocytes 0.9 10^3/uL (1.2-3.4); Absolute Monocytes 0.5 10^3/uL (0.1-0.6); Absolute Neutrophils 6.6 10^3/uL (1.4-6.5); Hematocrit 45.2 % (39.0-52.0); Hemoglobin 15.4 g/dL (13.0-18.0); Mean Corp Hgb Conc. 34.1 g/dL (33.0-37.0); Mean Corpuscular Hgb 30.4 pg (27.0-31.0); Mean Corpuscular Volume 89.3 fL (80.0-94.0); Mean Platelet Volume 9.2 fL (7.4-10.4); Nucleated Red Blood Cells % 0 % (-); Platelet Count 247 10^3/uL (130-400); Red Blood Cell Count 5.06 10^6/uL (4.70-6.10); Red Cell Dist. Width 13.6 % (11.5-14.5)
[2024-04-22 16:35] LABS: ALT (SGPT) 25 U/L (0-50); AST (SGOT) 22 U/L (17-59); Albumin 4.4 g/dl (3.5-5.0); Alkaline Phosphatase 44 U/L (38-126); Blood Urea Nitrogen 11 mg/dl (9-20); Calcium 9.5 mg/dl (8.4-10.2); Carbon Dioxide 25 mmol/L (22-30); Chloride 106 mmol/L (98-107); Glucose 121 mg/dl (70-99); Potassium 4.1 mmol/L (3.5-5.1); Sodium 138 mmol/L (135-145); Total Bilirubin 1.1 mg/dl (0.2-1.3); Total Protein 7.5 g/dl (6.3-8.2); eGFR > 60.00
[2024-04-22 18:01] VITALS: BP 145/100
[2024-04-22 19:20] VITALS: BP 156/93
[2024-04-22 19:22] VITALS: BMI 29.1
== END 2024-04-22 20:16 | disposition home or self-care (01) ==
LOC: EMR 15:49
PROVIDERS: Physician Assistant; EMERGENCY PHYSICIAN Emergency Medicine; FAMILY PHYSICIAN Family Medicine
DX: R00.2 Palpitations (principal); I10 Essential (primary) hypertension; E78.00 Pure hypercholesterolemia, unspecified; Z95.0 Presence of cardiac pacemaker
CPT/HCPCS: 93288; 99284; 80053; 83735; 85025; 93005

== ENCOUNTER → 2024-05-05 11:55 | Outpatient (REF) | payer OTHER, SELFPAY | LOC: HWRAD 11:55 | PROVIDERS: ATTENDING PHYSICIAN Chiropractor; FAMILY PHYSICIAN Family Medicine | DX: M53.2X7 Spinal instabilities, lumbosacral region (principal); R10.2 Pelvic and perineal pain | CPT/HCPCS: 72110; 72170 ==

== ENCOUNTER → 2024-06-02 14:28 | Outpatient (REF) | payer OTHER, SELFPAY | LOC: HWRAD 14:28 | PROVIDERS: ATTENDING PHYSICIAN Chiropractor; FAMILY PHYSICIAN Family Medicine | DX: M54.2 Cervicalgia (principal) | CPT/HCPCS: 72052 ==

== ENCOUNTER 2024-10-29 17:34 | Emergency (ER) | payer OTHER, SELFPAY ==
[2024-10-29] VITALS (7 sets, daily range): BP systolic 114–155; BP diastolic 73–91; PULSE 58–64; BMI 26.2
[2024-10-29 18:01] LABS: Hematocrit 44.0 % (39.0-52.0); Hemoglobin 15.1 g/dL (13.0-18.0); Mean Corp Hgb Conc. 34.3 g/dL (33.0-37.0); Mean Corpuscular Volume 89.1 fL (80.0-94.0); Nucleated Red Blood Cells % 0 % (-); Platelet Count 263 10^3/uL (130-400); Red Cell Dist. Width 12.9 % (11.5-14.5)
[2024-10-29 18:14] LABS: ALT (SGPT) 25 U/L (0-50); AST (SGOT) 22 U/L (17-59); Albumin 4.7 g/dl (3.5-5.0); Alkaline Phosphatase 38 U/L (38-126); Blood Urea Nitrogen 11 mg/dl (9-20); Calcium 9.8 mg/dl (8.4-10.2); Carbon Dioxide 26 mmol/L (22-30); Chloride 107 mmol/L (98-107); Glucose 101 mg/dl (70-99); Potassium 4.2 mmol/L (3.5-5.1); Sodium 139 mmol/L (135-145); Total Protein 7.8 g/dl (6.3-8.2); eGFR > 60.00
[2024-10-29 18:25] LABS: Troponin I < 0.012 ng/ml
--- NOTE | 2024-10-29 23:30 | ED.GENMED ---
History of Present Illness
General
Chief Complaint: Heart Rate Problem
Source: patient
Time Seen by Provider: 10/29/24 21:28
History of Present Illness
History of Present Illness:
Note:
CHIEF COMPLAINT(S)
Fluctuating blood pressure and episodes of tachycardia.
HISTORY OF PRESENT ILLNESS
The patient is a 69-year-old male with a history of bradycardia, previously presenting with a symptomatic necessity for a pacemaker implantation. The patient reports waking at 4 a.m. for an early class and experiencing palpitations and a significant
rise in blood pressure to 180/100 mmHg, later decreasing to 160/90 mmHg. The patient attempted to proceed with daily activities but felt lethargic and light-headed, similar to past pre-syncope episodes prior to pacemaker placement. The patient opted
to return home, where subsequent monitoring revealed persistent blood pressure elevations reaching 150 mmHg systolic. The patient also reports that while exercising, the heart rate can reach the 90s to 103 bpm, which is typically asymptomatic.
However, today he felt symptomatic. The patient usually manages hypertension with Diltiazem and notes normal baseline blood pressure readings around 111/76 mmHg. 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
episode.
PAST MEDICAL AND SURGICAL HISTORY
History of bradycardia requiring pacemaker implantation. Previously on Lisinopril, which was discontinued after pacemaker placement and initiation of Diltiazem.
SOCIAL DETERMINANTS AFFECTING HEALTH
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
ALLERGIES
Reported sulfa allergy.
MEDICATIONS
Currently taking Diltiazem, previously on Lisinopril.
REVIEW OF SYSTEMS
- Cardiovascular: Reports tachycardia episodes; hypertension noted.
- Neurological: Experiences light-headedness.
- General: Experiences fatigue and feelings of lethargy.
PHYSICAL EXAM
General: Alert, no acute distress.
Skin: Warm, dry.
Head: Normocephalic, atraumatic.
Neck: Supple, trachea midline.
Eyes, Ears, Nose, Mouth, and Throat: Oral mucosa moist.
Cardiovascular: Normal peripheral perfusion, Heart rate regular without murmur.
Respiratory: Respirations are non-labored, Lungs clear.
Gastrointestinal: Abdomen nondistended.
Back: Normal range of motion, Normal alignment.
Musculoskeletal: Normal range of motion, normal strength.
Neurological: Alert and oriented to person, place, time, and situation, No focal neurological deficit observed.
Psychiatric: Cooperative, appropriate mood & affect.
PLAN
- Review the interrogation report of the pacemaker to assess for potential arrhythmias.
- The nurse will perform orthostatic vital signs to assess for differential blood pressure in different positions.
- Consider adjustment of antihypertensive medications given the fluctuating blood pressure, with feedback anticipated from the patients physician office specialist regarding possible initiation of Hydrochlorothiazide.
DIFFERENTIAL DIAGNOSIS
The differential diagnosis includes, in no particular order and is not limited to:
- Uncontrolled Hypertension
- Tachycardia related to pacemaker dysfunction
- Paroxysmal Supraventricular Tachycardia
- Orthostatic Hypotension
- Cardiac Arrhythmia
- Anxiety or Stress-related Tachycardia
- Medication side effects
- Atrial Fibrillation/flutter
- Electrolyte Imbalance
- Dehydration
EKG
My independent EKG interpretation is:
- Time of EKG: Not specified
- Rhythm: Atrial-paced rhythm
- Heart rate: 66 bpm
- [place]: Normal
- [place] interval: Not specified
- QRS duration: Not specified
- QT interval: Not specified
- Abnormalities: No ST segment changes observed
Disposition:
SUMMARY OF ENCOUNTER
The patient, a 69-year-old male, presented to the emergency department with fluctuating blood pressure and episodes of tachycardia. He has a history of bradycardia with a pacemaker. During this visit, he experienced palpitations and a significant
rise in blood pressure. Both the complete blood count (CBC) and comprehensive metabolic panel (CMP) were normal. Troponin levels were negative. An EKG showed an atrial-paced rhythm with a heart rate of [address] segment changes. Interrogation
of the patients Medtronic pacemaker revealed no episodes of ventricular tachycardia or atrial fibrillation, indicating that the device was functioning properly. The patient reports similar episodes in the past but is well connected with cardiology
for ongoing outpatient monitoring. His blood pressure was stable at this visit, recorded at 114/73 mmHg, and his orthostatic vitals were normal.
DISPOSITION
Discharge.
ASSESSMENT
The patients symptoms may be attributed to stress-related tachycardia or fluctuations in blood pressure, potentially exacerbated by underlying anxiety and recent occupational stress. The possibility of uncontrolled hypertension or a
pacemaker-related arrhythmia should also be considered, although no acute events were detected today.
PLAN
The plan includes continued monitoring and management under the care of the patient�s physician office specialist. Adjustments to antihypertensive medications may be needed based on feedback from his physician office specialist. Follow-up for outpatient review is advised.
INDEPENDENT REVIEW OF LABS AND INTERPRETATION OF TESTS
- My independent review of CBC is normal.
- My independent review of CMP is normal.
- My independent review of troponin is negative.
- My independent EKG interpretation is an atrial-paced rhythm with a heart rate of [address] segment changes.
MEDICATION RECONCILIATION
The patient is currently managing hypertension with Diltiazem, having discontinued Lisinopril after pacemaker placement.
MEDICAL DECISION MAKING
- Number and Complexity of Problems Addressed: Chronic conditions affecting care include a history of bradycardia with a pacemaker, episodes of tachycardia, and hypertension. Differential diagnosis includes uncontrolled hypertension, pacemaker
dysfunction, stress-related tachycardia, and possible atrial fibrillation/flutter.
- Data:
Category 1:
- My independent interpretation of the EKG is consistent with normal findings.
- Reviewed interrogation data from the patients Medtronic pacemaker.
Category 3:
- Discussion with cardiology is anticipated for potential medication adjustments.
-Risk:
Consideration of Admission/Observation: Escalation of care including admission/observation was considered, but ultimately I feel the patient is safe for outpatient management with close follow-up. Reasoning: Work-up reassuring, does not reveal any
acute life/organ threatening processes, patients symptoms well controlled upon reevaluation, reexamination is reassuring, vitals are stable, patient agreeable with discharge, reliable for follow-up.
DIAGNOSIS
- Tachycardia, unspecified (ICD-10: R00.0)
- Hypertension, unspecified (ICD-10: I10)
- Stress-related disorder, unspecified (ICD-10: F43.9)
Past History
Past History
ED Past Medical History: HTN, Hypercholesterolemia and Other (BPH); Negative Arrthythmia, CAD, IDDM or NIDDM
ED Past Surgical History: Tonsilectomy and Other (Hernia repair)
Social History
Tobacco: Non-smoker
Alcohol: None
Drug: None
Personal:
Living: with family
Employment: Employed
Family History
Family History: Hypertension and Other (Two brothers with cardiac problems on with 2 AR's in 60's, other brother has pacemaker)
Phy Exam
Physical Exam
Physical Exam:
.
Course
Orders/Labs/Results
Orders:
Orders
10/29/24 17:35
ECG [Electrocardiogram (*1)] Urgent
Reason for Study: Tachycardia
EKG- Treatment ONCE
10/29/24 17:49
CBC/With Diff [Complete Blood Count/With Diff] Urgent
CMP [Comprehensive Metabolic Panel] Urgent
Troponin I Urgent
10/29/24 21:27
pacemaker [Interrogate Pacemaker- Treatment] ONCE
10/29/24 23:08
Orthostatic VS- Treatment ONCE
Abnormal Lab Results
10/29/24
17:49
Absolute Neuts (auto) 6.9 H 10^3/uL
(1.4-6.5)
Absolute Monos (auto) 0.7 H 10^3/uL
(0.1-0.6)
Neutrophils % 77.3 H %
(42.2-75.2)
Lymphocytes % 14.2 L %
(20.5-51.1)
Glucose 101 H mg/dl
(70-99)
10/29/24 17:49
10/29/24 17:49
Vital Signs
Initial and Last Documented VS:
Initial Vital Signs
Temp Pulse Resp BP Pulse Ox
98.7 F 79 15 137/91 97
10/29/24 17:42 10/29/24 17:42 10/29/24 17:42 10/29/24 17:42 10/29/24 17:42
Last Documented Vital Signs
Temp Pulse Resp BP Pulse Ox
98.7 F 65 13 114/73 95
10/29/24 17:42 10/29/24 22:45 10/29/24 22:45 10/29/24 22:00 10/29/24 22:45
*Pulse Oximetry
SaO2: 95
Oxygen Mode of Delivery: Room air
Patient hypoxic: no
*Critical Care Note
Total Time (30-74mins, 75-104mins- exclusive of procedures): Not Applicable
ED Attending Note
-
Portions of this chart may have been created with voice recognition software.� Occasional wrong word or��sound alike� substitutions may have occurred due to the inherent limitations of voice recognition software.
Discharge Plan
Departure
Patient Disposition: Home (Routine Discharge)
Date of Disposition: 10/29/24
Time of Disposition: 23:30
Patient with high blood pressure during this ER visit?: No
Discharge Problem:
Palpitations
Instructions: Palpitations (DC)
Prescriptions:
No Action
alfuzosin 10 MG tablet extended release 24 hr
10 mg PO QPM
ezetimibe [Zetia] 10 mg Tablet
10 mg PO HS
Eliquis 5 mg Tablet
5 mg PO BID Qty: 60 0RF
diltiazem HCl 180 mg Capsule,Extended Release 24 Hr
180 mg PO DAILY
magnesium oxide 250 mg magnesium Tablet
250 mg PO DAILY
cholecalciferol (vitamin D3) [Vitamin D3] 50 mcg (2,000 unit) Tablet
50 mcg PO QPM
clotrimazole [Athlete's Foot (clotrimazole)] 1 % Cream
1 applic topical BID Qty: 90 0RF
cephalexin 500 mg capsule
500 mg PO QID 11 Days Qty: 44 0RF
Referrals:
Ruthann Naik DO [Family Provider]
Activity Restrictions/Additional Instructions:
Please see your doctor or physician office specialist in the next 1 week for follow-up and reevaluation. Return immediately for worsening symptoms, passing out episode, shortness of breath, weakness of any kind or any other concerns
Interventions
Interventions:
*Risk Screen - Suicide Last Done: 10/29/24 17:42
*General Assessment Last Done: 10/29/24 17:42
*Neglect/Abuse Screening Last Done: 10/29/24 17:42
*ED COVID-19 Vaccine History Last Done: 10/29/24 17:42
ED- Cardiac Assessment Last Done: 10/29/24 21:29
ED- Neurological Assessment Last Done: 10/29/24 21:29
ED- Pulmonary Assessment Last Done: 10/29/24 21:29
Discharge Date and Time
Print Language: KHMER
== END 2024-10-29 23:59 | disposition home or self-care (01) ==
LOC: EMR 17:34
PROVIDERS: Emergency Medicine; EMERGENCY PHYSICIAN Emergency Medicine; FAMILY PHYSICIAN Family Medicine
DX: R00.2 Palpitations (principal); I10 Essential (primary) hypertension; E78.00 Pure hypercholesterolemia, unspecified; N40.0 Benign prostatic hyperplasia without lower urinary tract symptoms; Z95.0 Presence of cardiac pacemaker; Z82.49 Family history of ischemic heart disease and other diseases of the circulatory system
CPT/HCPCS: 99284; 93288; 80053; 84484; 85025; 93005